=== PATIENT | female | born 1980 | race Caucasian/White ===

== ENCOUNTER 2016-10-17 06:40 | Emergency (ER) | payer BC ==
[2016-10-17] MEDS ORDERED: Ondansetron 4 MG/2 ML SDV IVPUSH ONE ×2 (07:13→10:19)
[2016-10-17] MEDS ORDERED: HYDROmorphone 1 MG/ML Syringe IVPUSH ONE ×3 (07:13→09:29)
[2016-10-17] MEDS ORDERED: Sodium Chloride 0.9% 500 ML IV ONE (07:13)
[2016-10-17] MEDS ORDERED: Sodium Chloride 0.9% 10 ML Syringe FLUSH PRN (07:13)
[2016-10-17] MEDS ORDERED: Metoclopramide 10 MG/2 ML SDV IVPUSH ONE (08:24)
[2016-10-17] MEDS ORDERED: HYDROmorphone 0.5 MG/0.5 ML Syringe IVPUSH ONE (08:24)
[2016-10-17] MEDS ORDERED: Tamsulosin 0.4 MG Cap.ER PO ONE (08:59)
--- NOTE | 2016-10-17 09:33 | EDM.PDOC ---
ED HPI GENERAL MEDICAL PROBLEM - General Chief Complaint: Back Pain or Injury Stated Complaint: LOWER BACK AND ABDOMINAL PAIN Time Seen by Provider: 10/17/16 07:04 Source of Information: Reports: Patient, RN Notes Reviewed - History of Present Illness INITIAL COMMENTS - FREE TEXT/NARRATIVE: 36-year-old female presents with severe left back and flank discomfort. She had onset of mild discomfort off and on a day or 2 ago. That became much more severe last evening, has continued quite severe through the night up until this time. Has sharp shooting pain now radiating clear to the left groin. She's had some nausea and vomiting with this. Is have history of prior kidney stone many years ago. This discomfort is very similar. No voiding symptoms. No fever or chills. No right-sided abdominal pain. Lower Back Pain Score (Numeric/FACES): 7 - Related Data Allergies Allergy/AdvReac Type Severity Reaction Status Date / Time medical tape Allergy Rash Uncoded 10/17/16 06:48 Home Meds: Home Meds [id number]/Ferrous Fumarate/FA [ Multivitamins] 1 each PO QAM 04/29/14 [ History] Ibuprofen [Motrin] 600 mg PO Q4H PRN #30 tablet 04/23/15 [Rx] Lanolin [Lansinoh HPA] 1 applic TOP ASDIRECTED PRN #30 tube 04/23/15 [Rx] Ondansetron [Zofran ODT] 4 mg PO Q4H #4 tab.dis 06/23/15 [Rx] Past Medical History HEENT History: Reports: Other (See Below) Other HEENT History: States has sinus issues with previous surgery in 2007 [employer] DE[employer] History: Reports: Dysfunctional Uterine Bleeding, , Other (See Below) Other OB/BYN History: D&C 2014. Ovarian Cyst removal 2013. Csection 2007. breast augmentation. yeast infection Musculoskeletal History: Reports: Back Pain, Chronic Neurological History: Reports: Migraines - Past Surgical History HEENT Surgical History: Reports: Oral Surgery, Other (See Below) GI Surgical History: Reports: Appendectomy Other GI Surgeries/Procedures: 1998 Female Surgical History: Reports: Section Musculoskeletal Surgical History: Reports: Arthroscopic Knee Social & Family History - Family History Musculoskeletal: Reports: RA Other Musculoskeletal Family History: Mother Oncologic: Reports: Prostate Other Oncologic Family History: Maternal Grandpa - Tobacco Use Smoking Status *Q: Never Smoker Second Hand Smoke Exposure: No - Caffeine Use Caffeine Use: Reports: None - Alcohol Use Days Per Week of Alcohol Use: 0 - Recreational Drug Use Recreational Drug Use: No ED ROS GENERAL - Review of Systems Review Of Systems: See Below Constitutional: Denies: Fever, Chills, Diaphoresis HEENT: Reports: No Symptoms Respiratory: Denies: Shortness of Breath, Pleuritic Chest Pain Cardiovascular: Denies: Chest Pain GI/Abdominal: Reports: Abdominal Pain, Nausea, Vomiting : Reports: No Symptoms Musculoskeletal: Reports: Back Pain. Denies: Leg Pain Skin: Reports: No Symptoms Neurological: Reports: No Symptoms ED EXAM, RENAL/ - Physical Exam Exam: See Below General Appearance: Alert, Severe Distress Eye Exam: Bilateral Eye: PERRL Throat/Mouth: Normal Inspection, Normal Oropharynx Head: No: Facial Swelling Neck: Supple, Full Range of Motion Respiratory/Chest: No Respiratory Distress, Lungs Clear, Normal Breath Sounds Cardiovascular: Regular Rate, Rhythm GI/Abdominal: Soft, Tender (LL quad) Back Exam: CVA Tenderness (L) Extremities: Normal Inspection, Normal Range of Motion Neurological: Alert, Oriented, No Motor/Sensory Deficits Skin Exam: Warm, Dry, Normal Color Course - Vital Signs Last Recorded V/S: Last Vital Signs Temp 98.4 F 10/17/16 06:45 Pulse 86 10/17/16 10:50 Resp 18 10/17/16 10:50 BP 136/88 10/17/16 10:50 Pulse Ox 100 10/17/16 10:50 - Orders/Labs/Meds Orders: Active Orders 24 hr Category Date Time Status Peripheral IV Care [RC] . DIRECTED Care 10/17/16 07:14 Active Peripheral IV Insertion Adult [OM.PC] Stat Oth 10/17/16 07:13 Ordered Labs: Laboratory Tests 10/17/16 Range/Units 10:40 Urine Color Yellow (Yellow) Urine Appearance Cloudy H (Clear) Urine pH 7.0 (5.0-8.0) Ur Specific [place] 1.020 (1.005-1.030) Urine Protein 1+ H (Negative) Urine Glucose (UA) Negative (Negative) Urine Ketones Negative (Negative) Urine Occult Blood 3+ H (Negative) Urine Nitrite Negative (Negative) Urine Bilirubin Negative (Negative) Urine Urobilinogen 0.2 (0.2-1.0) Ur Leukocyte Esterase Negative (Negative) Urine RBC 75-100 H (0-5) /hpf Urine WBC 5-10 H (0-5) /hpf Ur Epithelial Cells 20-30 H (0-5) /hpf Urine Bacteria Few (FEW) /hpf Urine Mucus Not seen (FEW) /hpf Meds: Medications Discontinued Medications Generic Name Dose Route Start Last Admin Trade Name Freq PRN Reason Stop Dose Admin Hydromorphone HCl 1 mg 10/17/16 07:13 10/17/16 07:20 Dilaudid IVPUSH 10/17/16 07:14 1 mg ONETIME ONE Administration Hydromorphone HCl 0.5 mg 10/17/16 08:24 10/17/16 08:33 Dilaudid IVPUSH 10/17/16 08:25 0.5 mg ONETIME ONE Administration Hydromorphone HCl 0.5 mg 10/17/16 08:58 10/17/16 09:04 Dilaudid IVPUSH 10/17/16 08:59 0.5 mg ONETIME ONE Administration Hydromorphone HCl 0.5 mg 10/17/16 09:29 10/17/16 09:37 Dilaudid IVPUSH 10/17/16 09:30 0.5 mg ONETIME ONE Administration Sodium Chloride 500 mls @ 999 mls/hr 10/17/16 07:13 10/17/16 07:24 Normal Saline IV 10/17/16 07:43 999 mls/hr .BOLUS ONE Administration Metoclopramide HCl 5 mg 10/17/16 08:24 10/17/16 08:36 Reglan IVPUSH 10/17/16 08:25 5 mg ONETIME ONE Administration Ondansetron HCl 4 mg 10/17/16 07:13 10/17/16 07:22 Zofran IVPUSH 10/17/16 07:14 4 mg ONETIME ONE Administration Ondansetron HCl 4 mg 10/17/16 10:19 10/17/16 10:23 Zofran IVPUSH 10/17/16 10:20 4 mg ONETIME ONE Administration Sodium Chloride 10 ml 10/17/16 07:13 10/17/16 07:20 Saline Flush FLUSH 10 ml ASDIRECTED PRN Administration Keep Vein Open Tamsulosin HCl 0.4 mg 10/17/16 08:59 10/17/16 09:06 Flomax PO 10/17/16 09:00 0.4 mg ONETIME ONE Administration - Re-Assessments/Exams Free Text/Narrative Re-Assessment/Exam: 10/17/16 09:29 CT of abdomen and pelvis without contrast does show a 7 mm obstructing stone in the area of the left UVJ. See radiology report for details. She was given 1 mg Dilaudid initially along with Zofran 4 mg IV. That helped but with continued severe discomfort she is required further 0.5 mg dosages, pain is still at a 7. Called [facility] and Dr. Connolly, Urologist will be able to see her this afternoon at the clinic. We have asked radiology to push her CT. Her is going to go run and fill scripts and we will get her going in about an hour so she can be there around 1:00 [place] time. She's been advised to remain nothing by mouth. We have given close to 1 L of IV fluid so hydration should not be a problem for now. Departure - Departure Time of Disposition: 10:30 Disposition: DC/Tfer to Other 70 Condition: Fair Clinical Impression: Kidney stone on left side - Discharge Information Instructions: Kidney Stones, [id number], Renal Colic Referrals: Omkar Harley MD [Primary Care Provider] - Forms: ED Department Discharge Additional Instructions: Go to [facility] to see Dr. Connolly, Urologist this afternoon at 1 :00 central time or as soon as possible thereafter. Zofran 4 mg ODT if needed for further nausea or vomiting. Do not eat or drink until after your appointment. - My Orders Last 24 Hours: My Active Orders 10/17/16 07:13 Peripheral IV Insertion Adult [OM.PC] Stat 10/17/16 07:14 Peripheral IV Care [RC] . DIRECTED - Assessment/Plan Last 24 Hours: My Active Orders 10/17/16 07:13 Peripheral IV Insertion Adult [OM.PC] Stat 10/17/16 07:14 Peripheral IV Care [RC] . DIRECTED
--- NOTE | 2016-10-17 09:56 | CT ---
CT abdomen and pelvis Technique: Multiple axial sections were obtained from above the dome of the diaphragm inferiorly through the pubic symphysis. Intravenous and oral contrast was not utilized. Study has been performed as a ureteral stone protocol. Comparison: Previous CT abdomen and pelvis exam of 05/27/13. Findings: Nonobstructing calculi are identified within both kidneys. These have slightly increased in number from previous CT exam. Left-sided hydronephrosis is seen. This is caused by an obstructing stone located slightly past the UPJ measuring approximately 7 mm. Other portions of left ureter show no dilatation. No other ureteral calculi are seen on the right or left sides. Visualized lung bases shows nothing acute. Noncontrast liver and spleen appears within normal limits. Adrenal glands show no nodule. No discrete abnormality is identified within the pancreas. Abdominal aorta shows no aneurysmal dilatation. No retroperitoneal adenopathy or mesenteric abnormalities are seen. No pelvic mass or adenopathy is seen. Cystic lesion is identified within the left ovary measuring 3.5 cm. No additional pelvic abnormality is seen. Appendix is not definitely appreciated. No bowel dilatation is seen. Bone window settings were reviewed which appears within normal limits for the patient's age. Impression: 1. Nonobstructing calculi within both kidneys. Number of calculi have slightly increased from prior CT exam. 2. 7 mm obstructing stone located slightly past the UPJ on the left side causing proximal hydronephrosis. 3. 3.5 cm cyst noted within the left ovary which is likely incidental although follow-up pelvic ultrasound could be obtained in 6 months to make sure finding resolves. Diagnostic code #3
[2016-10-17 11:01] VITALS: BP 136/88
== END 2016-10-17 10:50 | disposition other institution (70) ==
LOC: JD.ED 06:40
DX: N13.2 Hydronephrosis with renal and ureteral calculous obstruction (principal); G43.909 Migraine, unspecified, not intractable, without status migrainosus; Z90.49 Acquired absence of other specified parts of digestive tract; Z98.890 Other specified postprocedural states
CPT/HCPCS: 74176; 81001; 96361; 96374; 96375; 96376; 99284; A9270; J1170; J2405; J2765; J7040; J7050

== ENCOUNTER 2017-10-03 18:43 | Emergency (ER) | payer BC ==
[2017-10-03 18:52] VITALS: BP 124/88
[2017-10-03] MEDS ORDERED: Sodium Chloride 0.9% 1,000 ML IV ONE (19:20)
[2017-10-03] MEDS ORDERED: Ondansetron 4 MG/2 ML SDV IVPUSH ONE (19:20)
[2017-10-03] MEDS ORDERED: HYDROmorphone 0.5 MG/0.5 ML SYRINGE IVPUSH ONE (19:20)
[2017-10-03] MEDS ORDERED: Sodium Chloride 0.9% 10 ML Syringe FLUSH PRN (19:20)
--- NOTE | 2017-10-03 19:25 | EDM.PDOC ---
ED HPI GENERAL MEDICAL PROBLEM - General Chief Complaint: Flank Pain Stated Complaint: RIGHT LOWER FLANK PAIN Time Seen by Provider: 10/03/17 19:24 Source of Information: Reports: Patient History Limitations: Reports: No Limitations - History of Present Illness INITIAL COMMENTS - FREE TEXT/NARRATIVE: 37-year-old female presents for evaluation and treatment of right-sided back and flank pain. Patient reports that she has been feeling unwell for the last 3 days. States that the sudden pain started tonight. Reports that the pain is currently a 5 out of 10 and is sharp. Worse with movement. Reports associated symptoms of nausea but no vomiting. No dysuria, hematuria, fevers or chills. Patient has a history of kidney stones, reports that this feels similar. Patient was seen in [place], approximately one year ago for a 7 mm obstructing stone. She reports she did have a stent placed. 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 Ovarian Cyst removal 2013. Csection 2007. breast augmentation. yeast infection Musculoskeletal History: Reports: Back Pain, Chronic Neurological History: Reports: Migraines - Past Surgical History HEENT Surgical History: Reports: Oral Surgery, Other (See Below) GI Surgical History: Reports: Appendectomy Other GI Surgeries/Procedures: 1998 Female Surgical History: Reports: Section, Kidney stone extraction Musculoskeletal Surgical History: Reports: Arthroscopic Knee Social & Family History - Family History Musculoskeletal: Reports: RA Other Musculoskeletal Family History: Mother Oncologic: Reports: Prostate Other Oncologic Family History: Maternal Grandpa - Tobacco Use Smoking Status *Q: Never Smoker - Caffeine Use Caffeine Use: Reports: None - Recreational Drug Use Recreational Drug Use: No ED ROS GENERAL - Review of Systems Review Of Systems: See Below Constitutional: Reports: Malaise. Denies: Fever GI/Abdominal: Reports: Nausea. Denies: Abdominal Pain, Vomiting : Reports: Flank Pain (right). Denies: Dysuria, Hematuria Musculoskeletal: Reports: Back Pain (bilateral mid back) ED EXAM, RENAL/ - Physical Exam Exam: See Below Exam Limited By: No Limitations General Appearance: Alert, WD/WN, Moderate Distress Eye Exam: Bilateral Eye: Normal Inspection Ears: Normal External Exam Nose: Normal Inspection Throat/Mouth: Normal Inspection, Normal Lips, Normal Voice, No Airway Compromise Respiratory/Chest: No Respiratory Distress, Lungs Clear, Normal Breath Sounds Cardiovascular: Normal Peripheral Pulses, Regular Rate, Rhythm, No Murmur GI/Abdominal: Normal Bowel Sounds, Soft, Non-Tender Neurological: Alert, Oriented, Normal Cognition Psychiatric: Normal Affect, Normal Mood Skin Exam: Warm, Dry, Normal Color Course - Vital Signs Last Recorded V/S: Last Vital Signs Temp 99.1 F 10/03/17 18:50 Pulse 77 10/03/17 18:50 Resp 18 10/03/17 18:50 BP 124/88 10/03/17 18:50 Pulse Ox 99 10/03/17 18:50 - Orders/Labs/Meds Orders: Active Orders 24 hr Category Date Time Status Peripheral IV Care [RC] . DIRECTED Care 10/03/17 19:20 Active Peripheral IV Insertion Adult [OM.PC] Routine Oth 10/03/17 19:18 Ordered Labs: Laboratory Tests 10/03/17 10/03/17 10/03/17 Range/Units 19:00 19:00 19:32 WBC 8.81 (3.98-10.04) K/mm3 RBC 4.14 (3.98-5.22) M/mm3 Hgb 12.7 (11.2-15.7) gm/L Hct 37.5 (34.1-44.9) % MCV 90.6 (79.4-94.8) fl MCH 30.7 (25.6-32.2) pg MCHC 33.9 (32.2-35.5) g/dl RDW Std Deviation 41.4 (36.4-46.3) fL Plt Count 241 (182-369) K/mm3 MPV 10.5 (9.4-12.3) fl Neut % (Auto) 49.8 (34.0-71.1) % Lymph % (Auto) 34.2 (19.3-51.7) % [place] % (Auto) 6.6 (4.7-12.5) % Eos % (Auto) 9.3 H (0.7-5.8) Baso % (Auto) 0.0 L (0.1-1.2) % Neut # (Auto) 4.39 (1.56-6.13) K/mm3 Lymph # (Auto) 3.01 (1.18-3.74) K/mm3 Johnston # (Auto) 0.58 H (0.24-0.36) K/mm3 Eos # (Auto) 0.82 H (0.04-0.36) K/mm3 Baso # (Auto) 0.00 L (0.01-0.08) K/mm3 Sodium (136-145) mEq/L Potassium (3.5-5.1) mEq/L Chloride (98-107) mEq/L Carbon Dioxide (21-32) mEq/L Anion Gap (5-15) BUN (7-18) mg/dL Creatinine (0.55-1.02) mg/dL Est Cr Clr Drug Dosing mL/min Estimated GFR (MDRD) (>60) mL/min BUN/Creatinine Ratio (14-18) Glucose (74-106) mg/dL Calcium (8.5-10.1) mg/dL Total Bilirubin (0.2-1.0) mg/dL AST (15-37) U/L ALT (14-59) U/L Alkaline Phosphatase (46-116) U/L C-Reactive Protein (<1.0) mg/dL Total Protein (6.4-8.2) g/dl Albumin (3.4-5.0) g/dl Globulin gm/dL Albumin/Globulin Ratio (1-2) Urine Color Yellow (Yellow) Urine Appearance Slt cloudy H (Clear) Urine pH 6.5 (5.0-8.0) Ur Specific [place] 1.025 (1.005-1.030) Urine Protein Negative (Negative) Urine Glucose (UA) Negative (Negative) Urine Ketones Negative (Negative) Urine Occult Blood Negative (Negative) Urine Nitrite Negative (Negative) Urine Bilirubin Negative (Negative) Urine Urobilinogen 1.0 (0.2-1.0) Ur Leukocyte Esterase Trace H (Negative) Urine RBC 0-5 (0-5) /hpf Urine WBC 0-5 (0-5) /hpf Ur Epithelial Cells 0-5 (0-5) /hpf Urine Bacteria Not seen (FEW) /hpf Urine Mucus Not seen (FEW) /hpf Urine HCG, Qual Negative (NEGATIVE) 10/03/17 10/03/17 Range/Units 19:32 19:32 WBC (3.98-10.04) K/mm3 RBC (3.98-5.22) M/mm3 Hgb (11.2-15.7) gm/L Hct (34.1-44.9) % MCV (79.4-94.8) fl MCH (25.6-32.2) pg MCHC (32.2-35.5) g/dl RDW Std Deviation (36.4-46.3) fL Plt Count (182-369) K/mm3 MPV (9.4-12.3) fl Neut % (Auto) (34.0-71.1) % Lymph % (Auto) (19.3-51.7) % [place] % (Auto) (4.7-12.5) % Eos % (Auto) (0.7-5.8) Baso % (Auto) (0.1-1.2) % Neut # (Auto) (1.56-6.13) K/mm3 Lymph # (Auto) (1.18-3.74) K/mm3 Johnston # (Auto) (0.24-0.36) K/mm3 Eos # (Auto) (0.04-0.36) K/mm3 Baso # (Auto) (0.01-0.08) K/mm3 Sodium 138 (136-145) mEq/L Potassium 3.9 (3.5-5.1) mEq/L Chloride 105 (98-107) mEq/L Carbon Dioxide 22 (21-32) mEq/L Anion Gap 14.9 (5-15) BUN 18 (7-18) mg/dL Creatinine 0.9 (0.55-1.02) mg/dL Est Cr Clr Drug Dosing 84.66 mL/min Estimated GFR (MDRD) > 60 (>60) mL/min BUN/Creatinine Ratio 20.0 H (14-18) Glucose 116 H (74-106) mg/dL Calcium 8.7 (8.5-10.1) mg/dL Total Bilirubin 0.3 (0.2-1.0) mg/dL AST 15 (15-37) U/L ALT 17 (14-59) U/L Alkaline Phosphatase 58 (46-116) U/L C-Reactive Protein < 0.2 (<1.0) mg/dL Total Protein 6.9 (6.4-8.2) g/dl Albumin 3.9 (3.4-5.0) g/dl Globulin 3.0 gm/dL Albumin/Globulin Ratio 1.3 (1-2) Urine Color (Yellow) Urine Appearance (Clear) Urine pH (5.0-8.0) Ur Specific [place] (1.005-1.030) Urine Protein (Negative) Urine Glucose (UA) (Negative) Urine Ketones (Negative) Urine Occult Blood (Negative) Urine Nitrite (Negative) Urine Bilirubin (Negative) Urine Urobilinogen (0.2-1.0) Ur Leukocyte Esterase (Negative) Urine RBC (0-5) /hpf Urine WBC (0-5) /hpf Ur Epithelial Cells (0-5) /hpf Urine Bacteria (FEW) /hpf Urine Mucus (FEW) /hpf Urine HCG, Qual (NEGATIVE) Meds: Medications Discontinued Medications Generic Name Dose Route Start Last Admin Trade Name Dariusq PRN Reason Stop Dose Admin Hydromorphone HCl 0.5 mg 10/03/17 19:20 10/03/17 19:49 Dilaudid IVPUSH 10/03/17 19:21 0.5 mg ONETIME ONE Administration Sodium Chloride 1,000 mls @ 999 mls/hr 10/03/17 19:20 10/03/17 19:50 Normal Saline IV 10/03/17 20:20 999 mls/hr ONETIME ONE Administration Ondansetron HCl 4 mg 10/03/17 19:20 10/03/17 19:49 Zofran IVPUSH 10/03/17 19:21 4 mg ONETIME ONE Administration Sodium Chloride 10 ml 10/03/17 19:20 10/03/17 19:30 Saline Flush FLUSH 10 ml ASDIRECTED PRN Administration Keep Vein Open - Radiology Interpretation Free Text/Narrative:: CT of the abdomen and pelvis without contrast impression per vrad: Small amount sections stones in the left kidney. No signs of stones in either ureter or in the urinary bladder. Those no sign of hydronephrosis. Mesenteric lymph nodes are seen in the right lower quadrant and there may be mesenteric adenitis. I do not identify the appendix but there is no sign of acute inflammatory change in the right lower quadrant. - Re-Assessments/Exams Free Text/Narrative Re-Assessment/Exam: 10/03/17 22:04 Checked on the patient. She has done well with the IV Dilaudid. Declined additional pain medication. I reviewed the labs and imaging with the patient. This most likely appears to be mesenteric adenitis. Is possible that she also passed a very small stone that did not cause any ureteral dilation and she's having residual ureteral spasm from this. Will give her some pain meds and have her follow a clear fluids and bland diet. Her symptoms should resolve by early next week and if not she should follow up with her primary care provider. Discharge instructions as documented. Departure - Departure Time of Disposition: 22:08 Disposition: Home, Self-Care 01 Condition: Fair Clinical Impression: Mesenteric adenitis - Discharge Information Prescriptions: Acetaminophen/oxyCODONE [Percocet 325-5 MG] 1 tab PO Q4HR PRN #20 tab PRN Reason: Pain Instructions: Mesenteric Adenitis, Pediatric Referrals: Omkar Harley MD [Primary Care Provider] - Forms: ED Department Discharge Additional Instructions: Recommend starting a probiotic. Theses are available [id number]. Recommend clear fluids and a bland diet. You were given medication the ER that can affect your ability to drive and operate machinery. Do not operate machinery within 12 hours of taking prescription narcotic pain medication. [id number] Tylenol or Motrin as needed for pain. For pain not relieved by Tylenol Motrin you may take Percocet 1-2 tabs every 4-[address] operate machinery within 12 hours of taking Percocet. Percocet is habit-forming , take as few these as needed to control your pain. Do not take more than 4 g of Tylenol from all sources in 1 day. Do not take more than 300 mg of ibuprofen from all sources in 1 day. Follow up with your primary care provider within one week for recheck of your symptoms. Please return to ER if your symptoms change or worsen. - My Orders Last 24 Hours: My Active Orders 10/03/17 19:18 Peripheral IV Insertion Adult [OM.PC] Routine 10/03/17 19:20 Peripheral IV Care [RC] . DIRECTED - Assessment/Plan Last 24 Hours: My Active Orders 10/03/17 19:18 Peripheral IV Insertion Adult [OM.PC] Routine 10/03/17 19:20 Peripheral IV Care [RC] . DIRECTED
--- NOTE | 2017-10-04 10:22 | CT ---
CT abdomen and pelvis Technique: Multiple axial sections were obtained from above the dome of the diaphragm inferiorly through the pubic symphysis. Intravenous contrast and oral contrast not given. Study has been performed as a ureteral stone protocol. Comparison: Prior CT abdomen and pelvis exam of 10/17/16. Findings: Numerous calcifications are seen within both kidneys compatible with small nonobstructing calculi. These findings have slightly changed in configuration from previous CT exam. No ureteral dilatation is seen. No ureteral stone is identified. Visualized lung bases show nothing acute. Noncontrast appearance of the liver and of the spleen appear within normal limits. Adrenal glands show no nodule. Pancreas shows no discrete abnormality. Aorta shows no aneurysmal dilatation. Gallbladder contains no calcified gallstones. Aorta shows no aneurysmal dilatation. No retroperitoneal adenopathy is seen. No pelvic mass or adenopathy is seen. Appendix is not definitely visualized but no right lower quadrant inflammatory change is seen. Slightly numerous lymph nodes are seen within the right lower abdomen. Incidental IUD is present within the uterus. Bone window settings were reviewed which appear within normal limits for the patient's age. Impression: 1. Multiple small nonobstructing calculi within the kidneys changing in configuration from prior study. 2. No ureteral dilatation or ureteral stone is seen. 3. Slightly numerous lymph nodes within the right lower abdomen. This is felt to be incidental but difficult to exclude mild mesenteric adenitis. 4. Other normal findings as noted above. Diagnostic code #3 I agree with preliminary report from [facility], finalized at 10/03/17, 10:00 PM Central Time
== END 2017-10-03 22:24 | disposition home or self-care (01) ==
LOC: JD.ED 18:43
DX: I88.0 Nonspecific mesenteric lymphadenitis (principal); Z79.899 Other long term (current) drug therapy; Z91.09 Other allergy status, other than to drugs and biological substances
CPT/HCPCS: 36415; 74176; 80053; 81001; 81025; 85025; 86140; 96361; 96374; 96375; 99284; J1170; J2405; J7040; J7050

== ENCOUNTER 2018-08-02 19:35 | Emergency (ER) | payer BC ==
[2018-08-02] MEDS ORDERED: HYDROmorphone 1 MG/ML Syringe IVPUSH ONE ×2 (19:51→20:14)
[2018-08-02] MEDS ORDERED: Ketorolac 30 MG/ML SDV IVPUSH ONE (19:51)
[2018-08-02] MEDS ORDERED: Ondansetron 4 MG/2 ML SDV IVPUSH ONE ×2 (19:52→21:16)
[2018-08-02 20:01] VITALS: BP 131/112
--- NOTE | 2018-08-02 20:05 | EDM.PDOC ---
ED HPI GENERAL MEDICAL PROBLEM - General Chief Complaint: Flank Pain Stated Complaint: KIDNEY STONE PAIN Time Seen by Provider: 08/02/18 19:40 Source of Information: Reports: Patient History Limitations: Reports: No Limitations - History of Present Illness INITIAL COMMENTS - FREE TEXT/NARRATIVE: This is a 38-year-old female. Over the last several days she's been having intermittent pain in her right flank. She has a history of several kidney stones in the past. The pain was tolerable over the last few days but about an hour and a half ago the pain got much more severe with nausea and she comes to the ER for evaluation. She is in moderate distress complaining of right flank and right lower quadrant abdominal pain. It feels like his moving down into the lower abdomen now. She does have nausea though she's had no vomiting. She says it feels like a kidney stone that she's had in the past. She wants a CAT scan to determine the size of the kidney stone since she's had multiple stones and had to be removed. She denies any fever or chills denies any blood in her urine. Right Flank Pain Score (Numeric/FACES): 9 - Related Data Allergies Allergy/AdvReac Type Severity Reaction Status Date / Time medical tape Allergy Rash Uncoded 08/02/18 19:39 Home Meds: Home Meds Albuterol [Ventolin HFA] 1 inh INH DAILY PRN 10/03/17 [History] Promethazine [Phenergan] 25 mg PO Q4H PRN 11/22/17 [History] SUMAtriptan [Imitrex] 50 mg PO ASDIRECTED PRN 11/22/17 [History] DULoxetine [Cymbalta] 30 mg PO DAILY 08/02/18 [History] LORazepam 0.5 - 1 mg PO BID PRN 08/02/18 [History] Dicyclomine [Bentyl] 40 mg PO Q8H PRN #20 tablet 08/03/18 [Rx] Past Medical History HEENT History: Reports: Other (See Below) Other HEENT History: States has sinus issues with previous surgery in 2007 Respiratory History: Reports: Asthma Other Respiratory History: exercise-induced asthma. Genitourinary History: Reports: Renal Calculus [employer] History: Reports: Dysfunctional Uterine Bleeding, Other [employer] History: D&C 2014. Ovarian Cyst removal 2013. Csection 2008. breast augmentation. yeast infection Musculoskeletal History: Reports: Back Pain, Chronic Neurological History: Reports: Migraines Hematologic History: Reports: Anemia, Iron Deficiency Other Hematologic History: during . - Infectious Disease History Infectious Disease History: Reports: Chicken Pox - Past Surgical History HEENT Surgical History: Reports: Naso-Sinus Surgery (2007), Oral Surgery ( wisdom teeth extraction) GI Surgical History: Reports: Appendectomy Other GI Surgeries/Procedures: 1998 Female Surgical History: Reports: Breast Implant, Section (2007), D& C (2014), Ureteral Stent, Other (See Below) (Ovarian cystectomy 2013) Musculoskeletal Surgical History: Reports: Arthroscopic Knee (right) Social & Family History - Family History Musculoskeletal: Reports: RA Other Musculoskeletal Family History: Mother Oncologic: Reports: Prostate Other Oncologic Family History: Maternal Grandpa - Caffeine Use Caffeine Use: Reports: None Other Caffeine Use: rarely - Living Situation & Occupation Living situation: Reports: , with Spouse, with Family (4 sons) Occupation: Employed ([employer]) ED ROS GENERAL - Review of Systems Review Of Systems: See Below Constitutional: Denies: Fever, Chills HEENT: Reports: No Symptoms Respiratory: Reports: No Symptoms Cardiovascular: Reports: No Symptoms Endocrine: Reports: No Symptoms GI/Abdominal: Reports: Abdominal Pain, Nausea. Denies: Constipation, Diarrhea, Vomiting : Reports: Flank Pain. Denies: Hematuria Musculoskeletal: Reports: No Symptoms Skin: Reports: No Symptoms Neurological: Reports: No Symptoms Psychiatric: Reports: No Symptoms Hematologic/Lymphatic: Reports: No Symptoms ED EXAM, GI/ABD - Physical Exam Exam: See Below Exam Limited By: No Limitations General Appearance: Alert, WD/WN, Moderate Distress Eyes: Bilateral: Normal Appearance Ears: Normal External Exam Nose: Normal Inspection Throat/Mouth: Normal Inspection, Normal Lips, Normal Voice, No Airway Compromise Head: Normocephalic Neck: Supple Respiratory/Chest: No Respiratory Distress, Lungs Clear, Normal Breath Sounds Cardiovascular: Regular Rate, Rhythm, No Murmur GI/Abdominal Exam: Soft, Other (He has tenderness in the right flank and especially the right lower quadrant area on palpation but there is no rebound, there is no peritoneal irritation noted. Bowel sounds are quiet presently) Back Exam: Full Range of Motion Extremities: Normal Inspection, Normal Range of Motion Neurological: Alert, Oriented Psychiatric: Anxious Skin Exam: Warm, Dry Course - Vital Signs Last Recorded V/S: Last Vital Signs Temp 99.2 F 08/02/18 19:39 Pulse 95 08/02/18 19:39 Resp 20 08/02/18 19:39 BP 131/112 H 08/02/18 19:39 Pulse Ox 100 08/02/18 19:39 - Orders/Labs/Meds Orders: Active Orders 24 hr Category Date Time Status Abdomen Pelvis w Cont [CT] Stat Exams 08/02/18 22:00 Taken Sodium Chloride 0.9% [Normal Saline] 1,000 ml Med 08/02/18 21:15 Active IV ASDIRECTED Medication Orders Sodium Chloride (Normal Saline) 1,000 mls @ 1,000 mls/hr IV ASDIRECTED TRACIE Last Admin: 08/02/18 21:21 Dose: 1,000 mls/hr Labs: Laboratory Tests 08/02/18 08/02/18 08/02/18 Range/Units 19:50 19:50 21:02 WBC 15.43 H (3.98-10.04) K/mm3 RBC 4.76 (3.98-5.22) M/mm3 Hgb 14.5 D (11.2-15.7) gm/L Hct 42.2 (34.1-44.9) % MCV 88.7 (79.4-94.8) fl MCH 30.5 (25.6-32.2) pg MCHC 34.4 (32.2-35.5) g/dl RDW Std Deviation 41.0 (36.4-46.3) fL Plt Count 304 (182-369) K/mm3 MPV 10.0 (9.4-12.3) fl Neut % (Auto) 66.8 (34.0-71.1) % Lymph % (Auto) 24.5 (19.3-51.7) % [place] % (Auto) 5.2 (4.7-12.5) % Eos % (Auto) 3.2 (0.7-5.8) Baso % (Auto) 0.1 (0.1-1.2) % Neut # (Auto) 10.32 H (1.56-6.13) K/mm3 Lymph # (Auto) 3.78 H (1.18-3.74) K/mm3 [place] # (Auto) 0.80 H (0.24-0.36) K/mm3 Eos # (Auto) 0.49 H (0.04-0.36) K/mm3 Baso # (Auto) 0.01 (0.01-0.08) K/mm3 Sodium 139 (136-145) mEq/L Potassium 3.7 (3.5-5.1) mEq/L Chloride 104 (98-107) mEq/L Carbon Dioxide 22 (21-32) mEq/L Anion Gap 16.7 H (5-15) BUN 12 (7-18) mg/dL Creatinine 0.9 (0.55-1.02) mg/dL Est Cr Clr Drug Dosing 83.82 mL/min Estimated GFR (MDRD) > 60 (>60) mL/min BUN/Creatinine Ratio 13.3 L (14-18) Glucose 96 (74-106) mg/dL Calcium 9.7 (8.5-10.1) mg/dL Total Bilirubin 0.3 (0.2-1.0) mg/dL AST 16 (15-37) U/L ALT 21 (14-59) U/L Alkaline Phosphatase 84 (46-116) U/L Total Protein 8.1 (6.4-8.2) g/dl Albumin 4.4 (3.4-5.0) g/dl Globulin 3.7 gm/dL Albumin/Globulin Ratio 1.2 (1-2) Urine Color Yellow (Yellow) Urine Appearance Clear (Clear) Urine pH 7.0 (5.0-8.0) Ur Specific [place] 1.020 (1.005-1.030) Urine Protein Negative (Negative) Urine Glucose (UA) Negative (Negative) Urine Ketones Negative (Negative) Urine Occult Blood Negative (Negative) Urine Nitrite Negative (Negative) Urine Bilirubin Negative (Negative) Urine Urobilinogen 0.2 (0.2-1.0) Ur Leukocyte Esterase Negative (Negative) Urine RBC 0-5 (0-5) /hpf Urine WBC 0-5 (0-5) /hpf Ur Squamous Epith Cells 0-5 (0-5) /hpf Urine Bacteria Occasional (FEW) /hpf Urine Mucus Moderate H (FEW) /hpf Meds: Medications Generic Name Dose Route Start Last Admin Trade Name Freq PRN Reason Stop Dose Admin Sodium Chloride 1,000 mls @ 1,000 mls/hr 08/02/18 21:15 08/02/18 21:21 Normal Saline IV 1,000 mls/hr ASDIRECTED TRACIE Administration Discontinued Medications Generic Name Dose Route Start Last Admin Trade Name Shilpi PRN Reason Stop Dose Admin Diatrizoate Meglum/Diatrizoate Sod 60 ml 08/02/18 23:07 08/02/18 23:15 Gastrografin 37% PO 08/02/18 23:08 60 ml ONETIME ONE Administration Hydromorphone HCl 1 mg 08/02/18 19:51 08/02/18 20:01 Dilaudid IVPUSH 08/02/18 19:52 1 mg ONETIME ONE Administration Hydromorphone HCl 1 mg 08/02/18 20:14 08/02/18 20:20 Dilaudid IVPUSH 08/02/18 20:15 1 mg ONETIME ONE Administration Iopamidol 100 ml 08/02/18 23:07 08/02/18 23:14 Isovue-370 (76%) IV 08/02/18 23:08 100 ml ONETIME ONE Administration Ketorolac Tromethamine 30 mg 08/02/18 19:51 08/02/18 20:01 Toradol IVPUSH 08/02/18 19:52 30 mg ONETIME ONE Administration Ondansetron HCl 4 mg 08/02/18 19:52 08/02/18 19:54 Zofran IVPUSH 08/02/18 19:53 4 mg ONETIME ONE Administration Ondansetron HCl 4 mg 08/02/18 21:16 08/02/18 21:23 Zofran IVPUSH 08/02/18 21:17 4 mg ONETIME ONE Administration - Radiology Interpretation Free Text/Narrative:: Initial noncontrast CT scan did not show any kidney stones or urethral dilatation. She was noted to have increased stool in the colon however. The second CT scan of the abdomen and pelvis with oral and IV contrast again shows no acute findings. - Re-Assessments/Exams Free Text/Narrative Re-Assessment/Exam: 08/02/18 21:59 The patient is feeling minimally better. We talked about doing a repeat CAT scan with oral and IV contrast to be actually certain we're not missing some sort of subtle inflammation of the colon or some other problem. I indicated to her the radiation exposure but she is more concerned about what is going on and she is having a hard time believing that maybe his colon spasms due to the increased stool is causing her symptoms. She would prefer to have the contrasted CAT scan so that is what we will do. 08/03/18 00:30 Spoke to the patient regarding the second CT scan that was normal. I believe that her severe pain is related to the stool in the colon and the colon cramps. I am going to give her some Bentyl prescription to help with the colon cramps. I am hoping that the oral contrast will help her have some good bowel movements I also suggested some magnesium citrate to drink half a bottle wait 12 hours and drink another half bottle to help her have a good bowel movement. I suggested she follow-up with her family doctor for possible GI referral if these symptoms continue or return to the ER if there is severe. Departure - Departure Time of Disposition: 00:31 Disposition: Home, Self-Care 01 Condition: Good Clinical Impression: Abdominal cramping, Obstipation - Discharge Information *PRESCRIPTION DRUG MONITORING PROGRAM REVIEWED*: Not Applicable *COPY OF PRESCRIPTION DRUG MONITORING REPORT IN PATIENT HERNANDO: Not Applicable Prescriptions: Dicyclomine [Bentyl] 40 mg PO Q8H PRN #20 tablet PRN Reason: Abdominal Pain Instructions: Constipation, Adult Referrals: Omkar Harley MD [Primary Care Provider] - Forms: ED Department Discharge Additional Instructions: Hopefully the oral contrast for the CT scan will help you have some good movements, use the Bentyl as needed for the severe cramping, a few not getting much results in the next 48 hours consider some magnesium citrate and take as directed as an [id number] remedy for constipation, call your doctor on Saturday regarding your visit in the ER for reevaluation and possible referral to a GI specialist, return to the ER if your symptoms worsen markedly - My Orders Last 24 Hours: My Active Orders 08/02/18 21:15 Sodium Chloride 0.9% [Normal Saline] 1,000 ml IV ASDIRECTED 08/02/18 22:00 Abdomen Pelvis w Cont [CT] Stat - Assessment/Plan Last 24 Hours: My Active Orders 08/02/18 21:15 Sodium Chloride 0.9% [Normal Saline] 1,000 ml IV ASDIRECTED 08/02/18 22:00 Abdomen Pelvis w Cont [CT] Stat
--- NOTE | 2018-08-02 20:41 | CT ---
CT abdomen and pelvis Technique: Multiple axial sections were obtained from above the dome of the diaphragm inferiorly through the pubic symphysis. Intravenous and oral contrast not utilized. Study has been performed as ureteral stone protocol. Findings: Multiple small nonobstructing calculi are seen within both kidneys, more numerous on the left side. No ureteral dilatation or ureteral stone is identified. Other findings: Small portion of the visualized lung bases are clear. Noncontrast appearance of the liver and spleen appears within normal limits. Surgical clips are seen from prior cholecystectomy. Adrenal glands show no nodule. Pancreas is within normal limits. Aorta shows no aneurysm. No retroperitoneal adenopathy or mesenteric abnormalities are seen. IUD present within the uterus. No pelvic mass or adenopathy seen. No free fluid or inflammatory change is seen. Appendix is seen and appears to be within normal limits. Increased stool is noted throughout the colon. Bone window settings were reviewed which appear within normal limits for the patient's age. Impression: 1. Multiple small nonobstructing calculi within both kidneys. 2. No ureteral dilatation or ureteral stone is seen. 3. Mild increased stool within the colon. 4. Nothing acute is appreciated on CT study of the abdomen and pelvis. Diagnostic code #2
[2018-08-02] MEDS ORDERED: Sodium Chloride 0.9% 1,000 ML IV SCH (21:15)
[2018-08-02] MEDS ORDERED: Iopamidol 755 Mg/ML 200 ML Bottle IV ONE (23:07)
[2018-08-02] MEDS ORDERED: Diatrizoate Meglumine/Diatrizoate Sodium 37% 120 ML Bottle PO ONE (23:07)
[2018-08-03] MEDS ORDERED: Dicyclomine 10 MG Cap PO ONE (00:46)
--- NOTE | 2018-08-04 06:39 | CT ---
CT abdomen and pelvis Technique: Multiple axial sections were obtained from above the dome of the diaphragm inferiorly through the pubic symphysis. Intravenous and oral contrast was utilized. There is lack of distal small bowel opacification. Delayed images were also obtained through the bladder. Comparison: Previous noncontrast renal stone protocol CT performed earlier on the same day. Findings: Small portion of the visualized lung bases are clear. Liver contains no focal abnormality. Spleen appears within normal limits. Surgical clips are seen from prior cholecystectomy. Common bile duct is slightly prominent believed to be incidental due to previous cholecystectomy. Adrenal glands show no nodule. Kidneys show small nonobstructing calculi which are better seen on prior noncontrast CT exam. No hydronephrosis or mass is seen. Aorta shows no aneurysm. Increased stool is seen throughout the colon. IUD is present within the uterus. Appendix is not definitely visualized. No inflammatory change is noted. No free fluid is seen. Delayed images show contrast within the distal ureters as well as within the bladder. Bone window settings were reviewed which appear within normal limits for the patient's age. Impression: 1. Increased stool within the colon. 2. Other incidental findings. Nothing acute is appreciated. Diagnostic code #2 I agree with preliminary report from [facility], finalized on 08/03/18, 1:18 AM Central Time
== END 2018-08-03 00:42 | disposition home or self-care (01) ==
LOC: JD.ED 19:35
DX: K59.00 Constipation, unspecified (principal); J45.909 Unspecified asthma, uncomplicated; Z79.899 Other long term (current) drug therapy
CPT/HCPCS: 36415; 74176; 74177; 80053; 81001; 85025; 96361; 96374; 96375; 96376; 99284; A9270; J1170; J1885; J2405; J7040; Q9963; Q9967

== ENCOUNTER 2018-08-13 18:35 | Emergency (ER) | payer BC ==
[2018-08-13 18:51] VITALS: BP 143/99
[2018-08-13] MEDS ORDERED: Ketorolac 30 MG/ML SDV IVPUSH ONE (19:01)
[2018-08-13] MEDS ORDERED: Sodium Chloride 0.9% 10 ML Syringe FLUSH PRN (19:01)
[2018-08-13] MEDS ORDERED: diphenhydrAMINE 50 MG/ML SDV IVPUSH ONE (19:01)
[2018-08-13] MEDS ORDERED: Metoclopramide 10 MG/2 ML SDV IVPUSH ONE (19:01)
[2018-08-13] MEDS ORDERED: Sodium Chloride 0.9% 1,000 ML IV ONE (19:02)
--- NOTE | 2018-08-13 19:10 | EDM.PDOC ---
ED HPI GENERAL MEDICAL PROBLEM - General Chief Complaint: Abdominal Pain Stated Complaint: HEADACHE/ABDOMINAL PAIN Time Seen by Provider: 08/13/18 18:46 Source of Information: Reports: Patient, RN Notes Reviewed History Limitations: Reports: No Limitations - History of Present Illness INITIAL COMMENTS - FREE TEXT/NARRATIVE: Patient is a 38-year-old female who presents to the ED for the evaluation of abdominal pain and a headache. The patient states that she was seen in this ED roughly 10 days ago, and was diagnosed with increased stool in her colon and some kidney stones in her kidneys. The patient followed up with her primary care provider on Saturday, he prescribed her a colon flush consisting of Dulcolax and a laxative, she states that she did have fairly good results with this. She states that she has had some increasing abdominal pain that started at work this morning, this is located in her right back and right lower abdomen. Patient states she took a naproxen this morning around 7:30, that this hasn't helped much. The patient states that she has a migraine as well, but has a history of migraines. She said she took her sumatriptan around 4:15, and a Zofran, she states that her nausea got better but her headache has not like not much. She notes that she has some dizziness and nausea, however has not had any diarrhea, vomiting, chest pain, shortness of breath. She notes that she is eating and drinking okay as well and can feel her stomach gurgling. Right Abdomen Pain Score (Numeric/FACES): 10 - Related Data Allergies Allergy/AdvReac Type Severity Reaction Status Date / Time medical tape Allergy Rash Uncoded 08/02/18 19:39 Home Meds: Home Meds Albuterol [Ventolin HFA] 1 inh INH DAILY PRN 10/03/17 [History] Promethazine [Phenergan] 25 mg PO Q4H PRN 11/22/17 [History] SUMAtriptan [Imitrex] 50 mg PO ASDIRECTED PRN 11/22/17 [History] DULoxetine [Cymbalta] 30 mg PO DAILY 08/02/18 [History] LORazepam 0.5 - 1 mg PO BID PRN 08/02/18 [History] Dicyclomine [Bentyl] 40 mg PO Q8H PRN #20 tablet 08/03/18 [Rx] Past Medical History HEENT History: Reports: Other (See Below) Other HEENT History: States has sinus issues with previous surgery in 2007 Respiratory History: Reports: Asthma Other Respiratory History: exercise-induced asthma. Genitourinary History: Reports: Renal Calculus Other Genitourinary History: ovarian cysts [employer] History: Reports: Dysfunctional Uterine Bleeding, Other [employer] History: D&C 2014. Ovarian Cyst removal 2013. Csection 2007. breast augmentation. yeast infection Musculoskeletal History: Reports: Back Pain, Chronic Neurological History: Reports: Migraines Hematologic History: Reports: Anemia, Iron Deficiency Other Hematologic History: during . - Infectious Disease History Infectious Disease History: Reports: Chicken Pox - Past Surgical History HEENT Surgical History: Reports: Naso-Sinus Surgery, Oral Surgery GI Surgical History: Reports: Appendectomy, Cholecystectomy Other GI Surgeries/Procedures: 1998 Female Surgical History: Reports: Breast Implant, Section, D&C, Ureteral Stent, Other (See Below) Musculoskeletal Surgical History: Reports: Arthroscopic Knee Social & Family History - Family History Musculoskeletal: Reports: RA Other Musculoskeletal Family History: Mother Oncologic: Reports: Prostate Other Oncologic Family History: Maternal Grandpa - Tobacco Use Smoking Status *Q: Never Smoker - Caffeine Use Caffeine Use: Reports: None Other Caffeine Use: rarely - Recreational Drug Use Recreational Drug Use: No - Living Situation & Occupation Living situation: Reports: , with Spouse, with Family (4 sons) 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 Denies: Diarrhea, Vomiting : Reports: No Symptoms Musculoskeletal: Reports: No Symptoms Skin: Reports: No Symptoms Neurological: Reports: No Symptoms Psychiatric: Reports: No Symptoms Hematologic/Lymphatic: Reports: No Symptoms ED EXAM, GI/ABD - Physical Exam Exam: See Below Exam Limited By: No Limitations General Appearance: Alert, WD/WN, Mild Distress Eyes: Bilateral: Normal Appearance Ears: Normal External Exam Head: Atraumatic, Normocephalic Neck: Normal Inspection Respiratory/Chest: No Respiratory Distress, Lungs Clear, Normal Breath Sounds, No Accessory Muscle Use, Chest Non-Tender Cardiovascular: Normal Peripheral Pulses, Regular Rate, Rhythm, No Murmur GI/Abdominal Exam: Normal Bowel Sounds, Soft, No Distention, No Mass, Tender ( diffuse abdominal tenderness). No: Guarding, Rigid Extremities: Normal Inspection, Normal Capillary Refill Neurological: Alert, Oriented, Normal Cognition, No Motor/Sensory Deficits Psychiatric: Normal Affect, Normal Mood Skin Exam: Warm, Dry, Intact, Normal Color, No Rash Course - Vital Signs Last Recorded V/S: Last Vital Signs Temp 98.7 F 08/13/18 18:49 Pulse 73 08/13/18 18:49 Resp 20 08/13/18 18:49 BP 143/99 H 08/13/18 18:49 Pulse Ox 98 08/13/18 18:49 - Orders/Labs/Meds Orders: Active Orders 24 hr Category Date Time Status Peripheral IV Care [RC] . DIRECTED Care 08/13/18 19:01 Active UA W/MICROSCOPIC [URIN] Stat Lab 08/13/18 19:55 Results Sodium Chloride 0.9% [Normal Saline] 1,000 ml Med 08/13/18 19:02 Active IV ASDIRECTED Sodium Chloride 0.9% [Saline Flush] Med 08/13/18 19:01 Active 10 ml FLUSH ASDIRECTED PRN Peripheral IV Insertion Adult [OM.PC] Routine Oth 08/13/18 19:01 Ordered Medication Orders Sodium Chloride (Normal Saline) 1,000 mls @ 500 mls/hr IV ASDIRECTED ONE Stop: 08/13/18 21:01 Last Admin: 08/13/18 19:10 Dose: 500 mls/hr Sodium Chloride (Saline Flush) 10 ml FLUSH ASDIRECTED PRN PRN Reason: Keep Vein Open Last Admin: 08/13/18 19:48 Dose: 10 ml Labs: Laboratory Tests 08/13/18 08/13/18 08/13/18 Range/Units 18:45 18:45 19:55 WBC 11.74 H (3.98-10.04) K/mm3 RBC 4.64 (3.98-5.22) M/mm3 Hgb 14.1 (11.2-15.7) gm/L Hct 41.5 (34.1-44.9) % MCV 89.4 (79.4-94.8) fl MCH 30.4 (25.6-32.2) pg MCHC 34.0 (32.2-35.5) g/dl RDW Std Deviation 40.1 (36.4-46.3) fL Plt Count 317 (182-369) K/mm3 MPV 9.9 (9.4-12.3) fl Neutrophils % (Manual) 57 (40-60) % Band Neutrophils % 0 (0-10) % Lymphocytes % (Manual) 31 (20-40) % Atypical Lymphs % 0 % Monocytes % (Manual) 5 (2-10) % Eosinophils % (Manual) 7 H (0.7-5.8) % Basophils % (Manual) 0 L (0.1-1.2) Platelet Estimate Adequate RBC Morph Comment Normal Sodium 140 (136-145) mEq/L Potassium 4.1 (3.5-5.1) mEq/L Chloride 105 (98-107) mEq/L Carbon Dioxide 24 (21-32) mEq/L Anion Gap 15.1 H (5-15) BUN 14 (7-18) mg/dL Creatinine 0.9 (0.55-1.02) mg/dL Est Cr Clr Drug Dosing 83.82 mL/min Estimated GFR (MDRD) > 60 (>60) mL/min BUN/Creatinine Ratio 15.6 (14-18) Glucose 91 (74-106) mg/dL Calcium 10.0 (8.5-10.1) mg/dL Total Bilirubin 0.3 (0.2-1.0) mg/dL AST 15 (15-37) U/L ALT 32 (14-59) U/L Alkaline Phosphatase 81 (46-116) U/L Total Protein 7.8 (6.4-8.2) g/dl Albumin 4.5 (3.4-5.0) g/dl Globulin 3.3 gm/dL Albumin/Globulin Ratio 1.4 (1-2) Urine Color Light yellow (Yellow) Urine Appearance Clear (Clear) Urine pH 6.5 (5.0-8.0) Ur Specific Panther 1.015 (1.005-1.030) Urine Protein Negative (Negative) Urine Glucose (UA) Negative (Negative) Urine Ketones Negative (Negative) Urine Occult Blood Negative (Negative) Urine Nitrite Negative (Negative) Urine Bilirubin Negative (Negative) Urine Urobilinogen 0.2 (0.2-1.0) Ur Leukocyte Esterase Negative (Negative) Meds: Medications Generic Name Dose Route Start Last Admin Trade Name Freq PRN Reason Stop Dose Admin Sodium Chloride 1,000 mls @ 500 mls/hr 08/13/18 19:02 08/13/18 19:10 Normal Saline IV 08/13/18 21:01 500 mls/hr ASDIRECTED ONE Administration Sodium Chloride 10 ml 08/13/18 19:01 08/13/18 19:48 Saline Flush FLUSH 10 ml ASDIRECTED PRN Administration Keep Vein Open Discontinued Medications Generic Name Dose Route Start Last Admin Trade Name Freq PRN Reason Stop Dose Admin Diphenhydramine HCl 25 mg 08/13/18 19:01 08/13/18 19:10 Benadryl IVPUSH 08/13/18 19:02 25 mg ONETIME ONE Administration Ketorolac Tromethamine 30 mg 08/13/18 19:01 08/13/18 19:11 Toradol IVPUSH 08/13/18 19:02 30 mg ONETIME ONE Administration Metoclopramide HCl 10 mg 08/13/18 19:01 08/13/18 19:10 Reglan IVPUSH 08/13/18 19:02 10 mg ONETIME ONE Administration - Re-Assessments/Exams Free Text/Narrative Re-Assessment/Exam: 08/13/18 19:13 Patient presents to the ED for the evaluation of abdominal pain and a headache. I have ordered IV fluids, 30 mg Toradol, 10 mg Reglan, 25 mg Benadryl for initial management of pain and her headache, I have ordered a CBC, CMP, UA for further evaluation of her abdominal symptoms. The patient states she has had multiple abdominal surgeries such as C-sections, a cholecystectomy, and appendectomy, so she likely has multiple adhesions in her abdomen. 08/13/18 20:16 Patient was re-assessed at bedside, and states that she feels better. I am wondering if her abdominal pain isn't due to an abdominal migraine of sorts as well. Her lab work was essentially within normal limits, her white count was mildly elevated however this is likely to be a stress reaction at this time. I will discharge the patient home with general recommendations. Departure - Departure Time of Disposition: 20:18 Disposition: Home, Self-Care 01 Condition: Fair Clinical Impression: Abdominal pain Qualifiers: Abdominal location: generalized Qualified Code(s): R10.84 - Generalized abdominal pain Headache Qualifiers: Headache type: unspecified Headache chronicity pattern: acute headache Intractability: not intractable Qualified Code(s): R51 - Headache - Discharge Information *PRESCRIPTION DRUG MONITORING PROGRAM REVIEWED*: No *COPY OF PRESCRIPTION DRUG MONITORING REPORT IN PATIENT HERNANDO: No Instructions: Abdominal Pain, Adult, [id number] Referrals: Omkar Harley MD [Primary Care Provider] - Forms: ED Department Discharge Additional Instructions: You have been evaluated in the ED tonight for your abdominal pain and migraine. You have been given medications that have alleviated your pain at this time. This was Toradol, Reglan (anti-nausea), Benadryl, and IV fluids. If you should develop a headache and abdominal pain, please try to take at least 600mg Ibuprofen, your previous Zofran prescription dose, 25mg Benadryl, and some oral fluids to see if this doesn't alleviate your symptoms. Your lab work at this ED visit was within normal limits. There was no blood in your urine to suggest that your kidney stones have moved any further. Please return to the ED if your symptoms should change or worsen however. - My Orders Last 24 Hours: My Active Orders 08/13/18 19:01 Peripheral IV Care [RC] . DIRECTED Sodium Chloride 0.9% [Saline Flush] 10 ml FLUSH ASDIRECTED PRN Peripheral IV Insertion Adult [OM.PC] Routine 08/13/18 19:02 Sodium Chloride 0.9% [Normal Saline] 1,000 ml IV ASDIRECTED 08/13/18 19:55 UA W/MICROSCOPIC [URIN] Stat - Assessment/Plan Last 24 Hours: My Active Orders 08/13/18 19:01 Peripheral IV Care [RC] . DIRECTED Sodium Chloride 0.9% [Saline Flush] 10 ml FLUSH ASDIRECTED PRN Peripheral IV Insertion Adult [OM.PC] Routine 08/13/18 19:02 Sodium Chloride 0.9% [Normal Saline] 1,000 ml IV ASDIRECTED 08/13/18 19:55 UA W/MICROSCOPIC [URIN] Stat
== END 2018-08-13 20:35 | disposition home or self-care (01) ==
LOC: JD.ED 18:35 → SUPCPDRO 18:35 → JD.ED 20:35
DX: R51 Headache (principal); J45.909 Unspecified asthma, uncomplicated; Z79.899 Other long term (current) drug therapy; Z91.09 Other allergy status, other than to drugs and biological substances
CPT/HCPCS: 36415; 80053; 81001; 85007; 85027; 96361; 96374; 96375; 99284; J1200; J1885; J2765; J7040

== ENCOUNTER 2019-12-31 18:21 | Emergency (ER) | payer BC ==
[2019-12-31 18:43] VITALS: BP 130/112; PULSE 72
[2019-12-31] MEDS ORDERED: traMADol 50 MG Tab PO ONE (19:15)
--- NOTE | 2019-12-31 19:15 | EDM.PDOC ---
ED HPI GENERAL MEDICAL PROBLEM - General Chief Complaint: General Stated Complaint: PAIN ISSUE Time Seen by Provider: 12/31/19 18:41 Source of Information: Reports: Patient, RN Notes Reviewed History Limitations: Reports: No Limitations - History of Present Illness INITIAL COMMENTS - FREE TEXT/NARRATIVE: Patient is a 39-year-old female who presents to the ED for the evaluation of pain throughout her entire body. Patient notes she was recently diagnosed with fibromyalgia from her primary care provider Dr. Omkar Alfonso in September. She was started on duloxetine and gabapentin. She states she has been taking these faithfully, and has not had any recent increase in medication dosage for this. She states over the last few days, she has pain all over her body, she notes thi s to be in her central abdomen, back and shoulders, right arm that shoots up to her shoulder. She states that her muscles feel super tense, and she is getting sharp shooting pains with movement. She states even her face hurts. She is not had any trauma, and she is denying any sick-like symptoms, cough/shortness of breath, fever/chills, nausea/vomiting/diarrhea. Patient did try to call her primary care doctor, Dr. Alfonso, but was instructed to come to the ER, he was not in the office, either today or tomorrow. Patient has been using ibuprofen at home, and this does not seem to be doing much for her at all. Generalized Pain Score (Numeric/FACES): 8 - Related Data Allergies Allergy/AdvReac Type Severity Reaction Status Date / Time medical tape Allergy Severe Rash Uncoded 12/31/19 18:34 Home Meds: Home Meds Albuterol [Ventolin HFA] 1 inh INH DAILY PRN 10/03/17 [History] Promethazine [Phenergan] 25 mg PO Q4H PRN 11/22/17 [History] SUMAtriptan [Imitrex] 50 mg PO ASDIRECTED PRN 11/22/17 [History] DULoxetine [Cymbalta] 60 mg PO DAILY 08/02/18 [History] Gabapentin [Neurontin] 600 mg PO TID 12/31/19 [History] Hydrocodone/Acetaminophen [Hydrocodone-Acetamin 10-325 mg] 1 each PO Q6H #12 tablet 12/31/19 [Rx] Past Medical History HEENT History: Reports: Other (See Below) Other HEENT History: States has sinus issues with previous surgery in 2007 Respiratory History: Reports: Asthma Other Respiratory History: exercise-induced asthma. Genitourinary History: Reports: Renal Calculus Other Genitourinary History: ovarian cysts [employer] History: Reports: Dysfunctional Uterine Bleeding, Other [employer] History: D&C 2014. Ovarian Cyst removal 2013. Csection 2007. breast augmentation. yeast infection Musculoskeletal History: Reports: Back Pain, Chronic Neurological History: Reports: Migraines Psychiatric History: Reports: Other (See Below) Other Psychiatric History: fibromyalgia Hematologic History: Reports: Anemia, Iron Deficiency Other Hematologic History: during . - Infectious Disease History Infectious Disease History: Reports: Chicken Pox - Past Surgical History HEENT Surgical History: Reports: Naso-Sinus Surgery, Oral Surgery GI Surgical History: Reports: Appendectomy, Cholecystectomy Other GI Surgeries/Procedures: 1998 Female Surgical History: Reports: Breast Implant, Section, D&C, Ureteral Stent, Other (See Below) Musculoskeletal Surgical History: Reports: Arthroscopic Knee Social & Family History - Family History Musculoskeletal: Reports: RA Other Musculoskeletal Family History: Mother Oncologic: Reports: Prostate Other Oncologic Family History: Maternal Grandpa - Tobacco Use Smoking Status *Q: Never Smoker - Caffeine Use Caffeine Use: Reports: None Other Caffeine Use: rarely - Recreational Drug Use Recreational Drug Use: No - Living Situation & Occupation Living situation: Reports: , with Spouse, with Family (4 sons) Occupation: Employed ([employer]) ED ROS GENERAL - Review of Systems Review Of Systems: Comprehensive ROS is negative, except as noted in HPI. ED EXAM, GENERAL - Physical Exam Exam: See Below Exam Limited By: No Limitations General Appearance: Alert, WD/WN, No Apparent Distress (pt appears to be in a moderate amount of pain, she is tearful at any movement of her body, and states that everything hurts) Respiratory/Chest: No Respiratory Distress, Lungs Clear, Normal Breath Sounds, No Accessory Muscle Use, Chest Non-Tender Cardiovascular: Normal Peripheral Pulses, Regular Rate, Rhythm, No Murmur GI/Abdominal: Normal Bowel Sounds, Soft, Non-Tender, No Distention, No Mass Extremities: Normal Inspection, Normal Capillary Refill Neurological: Alert, Oriented, Normal Cognition, No Motor/Sensory Deficits Psychiatric: Tearful Skin Exam: Warm, Dry, Intact, Normal Color, No Rash Course - Vital Signs Last Recorded V/S: Last Vital Signs Temp 98.6 F 12/31/19 18:41 Pulse 72 12/31/19 18:41 Resp 20 12/31/19 18:41 BP 130/112 H 12/31/19 18:41 Pulse Ox 100 12/31/19 18:41 - Orders/Labs/Meds Meds: Medications Discontinued Medications Generic Name Dose Route Start Last Admin Trade Name Freq PRN Reason Stop Dose Admin Hydrocodone Bitart/Acetaminophen 1 tab 12/31/19 20:31 12/31/19 20:45 Tovey 325-5 Mg PO 12/31/19 20:32 1 tab ONETIME ONE Administration Tramadol HCl 50 mg 12/31/19 19:15 12/31/19 19:27 Ultram PO 12/31/19 19:16 50 mg ONETIME ONE Administration - Re-Assessments/Exams Free Text/Narrative Re-Assessment/Exam: 12/31/19 19:09 Patient presents to the ED for all over body pain, this is most likely a pain flare of her fibromyalgia, she is on the appropriate therapy. Her provider referred her here specifically for pain management as he is not in the office today or tomorrow. I will trial her on tramadol and have her follow up with him on saturday. 12/31/19 20:32 The patient reported no pain relief at all from the tramadol. I have ordered 1 tablet of Tovey to see if this might help, at least get her pain relief over the weekend. She was willing to try this. Departure - Departure Time of Disposition: 19:18 Disposition: Home, Self-Care 01 Condition: Good Clinical Impression: Fibromyalgia muscle pain - Discharge Information *PRESCRIPTION DRUG MONITORING PROGRAM REVIEWED*: Yes *COPY OF PRESCRIPTION DRUG MONITORING REPORT IN PATIENT HERNANDO: No Prescriptions: Hydrocodone/Acetaminophen [Hydrocodone-Acetamin 10-325 mg] 1 each PO Q6H #12 tablet Instructions: Myofascial Pain Syndrome and Fibromyalgia Referrals: Omkar Harley MD [Primary Care Provider] - Forms: ED Department Discharge Additional Instructions: You were evaluated in the ER today for your fibromyalgia pain. You were given a prescription for Hydrocodone/acetaminophen 10/325mg, which is a pain reliever. Please take 1 tab q6h PRN for pain not relieved by Tylenol or ibuprofen alone. You were given enough only to get through the weekend so that you can follow up with your primary care provider on Saturday. Please take as few of these as possible; as these medications can be addictive. Do not drive while taking these medications. It is highly recommended that you increase your level of physical activity if you are suffering from fibromyalgia, as this can help with some of the chronic pain that you experience with the disease. Please return to the ED if your symptoms change or worsen. Sepsis Event Note (ED) - Evaluation Sepsis Screening Result: No Definite Risk - Focused Exam Vital Signs: Vital Signs Temp Pulse Resp BP Pulse Ox 12/31/19 18:41 98.6 F 72 20 130/112 H 100
[2019-12-31] MEDS ORDERED: Acetaminophen/HYDROcodone 325-5 MG Tab PO ONE (20:31)
== END 2019-12-31 21:02 | disposition home or self-care (01) ==
LOC: JD.ED 18:21
DX: M79.7 Fibromyalgia (principal); J45.909 Unspecified asthma, uncomplicated; Z79.899 Other long term (current) drug therapy; Z91.048 Other nonmedicinal substance allergy status
CPT/HCPCS: 99283; A9270

== ENCOUNTER 2020-01-12 07:05 | Day surgery (SDC) | payer BC ==
[~2020-01-12 07:05] MED LIST: Lactated Ringers 1,000 ML IV SCH; Lidocaine 1% 4 ML ONE; Lidocaine 1%/Sod Bicarbonate in NS 8.4% 1 ML Syringe IDERM PRN; Propofol 200 MG/20 ML SDV ONE; Rocuronium 50 MG/5 ML Vial ONE; Sodium Chloride 0.9% 10 ML Syringe FLUSH PRN; ceFAZolin 1 GM Vial ONE
[2020-01-12] MEDS ORDERED: fentaNYL 250 MCG/5 ML SDV ONE (07:14)
[2020-01-12] MEDS ORDERED: Propofol 200 MG/20 ML SDV ONE ×2 (07:14→08:16)
[2020-01-12] MEDS ORDERED: Ketamine 500 mg/10 ML MDV ONE (07:15)
[2020-01-12] MEDS ORDERED: Midazolam 1 MG/ML 2 ML SDV ONE (07:16)
[2020-01-12] MEDS ORDERED: Lidocaine 1% 4 ML ONE (07:16)
[2020-01-12] MEDS ORDERED: Bupivacaine 0.5% 30 ML SDV ONE (07:25)
[2020-01-12] MEDS ORDERED: Lidocaine 1% with EPINEPHrine 1:100,000 20 ML MDV ONE (07:25)
[2020-01-12] MEDS ORDERED: Sodium Chloride 0.9% 50 ML SDV ONE (07:25)
[2020-01-12] MEDS ORDERED: Scopolamine 1.5 MG Transdermal Patch TRDERM SCH (07:30)
[2020-01-12] MEDS ORDERED: HYDROmorphone 0.5 MG/0.5 ML Syringe IVPUSH PRN (07:36)
[2020-01-12] MEDS ORDERED: Ondansetron 4 MG/2 ML SDV IVPUSH PRN ×2 (07:36→09:08)
[2020-01-12] MEDS ORDERED: fentaNYL 100 MCG/2 ML SDV IVPUSH PRN (07:36)
--- NOTE | 2020-01-12 07:36 | PCM.PREANE ---
Preanesthetic Assessment - Procedure Proposed Procedure: LAVH with BSO - Anesthesia/Transfusion/Family Hx Anesthesia History: Prior Anesthesia Reaction Type of Anesthesia Reaction: Excessive Nausea/Vomiting Family History of Anesthesia Reaction: No - Review of Systems General: Fatigue (Chronic Fatigue Syndrome) Pulmonary: No Symptoms Cardiovascular: No Symptoms Gastrointestinal: No Symptoms Neurological: Headache (Migraines), Pre-Existing Deficit (Back and Hip Pain related to Fibromyalgia) Other: Reports: Depression, Anxiety - Physical Assessment NPO Status Date: 01/11/20 NPO Status Time: 23:30 Weight: 86 kg ASA Class: 2 Mental Status: Alert & Oriented x3 Airway Class: Mallampati = 2 Dentition: Reports: Normal Dentition Thyro-Mental Finger Breadths: 3 Mouth Opening Finger Breadths: 3 ROM/Head Extension: Full Lungs: Clear to Auscultation, Normal Respiratory Effort Cardiovascular: Regular Rate, Regular Rhythm, Tachycardia - Lab Values: Laboratory Last Values WBC 9.05 K/mm3 (3.98-10.04) 01/08/20 11:51 RBC 4.72 M/mm3 (3.98-5.22) 01/08/20 11:51 Hgb 14.6 gm/dl (11.2-15.7) 01/08/20 11:51 Hct 43.6 % (34.1-44.9) 01/08/20 11:51 MCV 92.4 fl (79.4-94.8) D 01/08/20 11:51 MCH 30.9 pg (25.6-32.2) 01/08/20 11:51 MCHC 33.5 g/dl (32.2-35.5) 01/08/20 11:51 RDW Std Deviation 42.2 fL (36.4-46.3) 01/08/20 11:51 Plt Count 326 K/mm3 (182-369) 01/08/20 11:51 MPV 9.6 fl (9.4-12.3) 01/08/20 11:51 Neut % (Auto) 59.5 % (34.0-71.1) 01/08/20 11:51 Lymph % (Auto) 28.3 % (19.3-51.7) 01/08/20 11:51 [place] % (Auto) 6.9 % (4.7-12.5) 01/08/20 11:51 Eos % (Auto) 5.1 (0.7-5.8) 01/08/20 11:51 Baso % (Auto) 0.1 % (0.1-1.2) 01/08/20 11:51 Neut # (Auto) 5.39 K/mm3 (1.56-6.13) 01/08/20 11:51 Lymph # (Auto) 2.56 K/mm3 (1.18-3.74) 01/08/20 11:51 [place] # (Auto) 0.62 K/mm3 (0.24-0.36) H 01/08/20 11:51 Eos # (Auto) 0.46 K/mm3 (0.04-0.36) H 01/08/20 11:51 Baso # (Auto) 0.01 K/mm3 (0.01-0.08) 01/08/20 11:51 Sodium 138 mEq/L (136-145) 01/08/20 11:51 Potassium 3.7 mEq/L (3.5-5.1) 01/08/20 11:51 Chloride 103 mEq/L (98-107) 01/08/20 11:51 Carbon Dioxide 26 mEq/L (21-32) 01/08/20 11:51 Anion Gap 12.7 (5-15) 01/08/20 11:51 BUN 16 mg/dL (7-18) 01/08/20 11:51 Creatinine 1.0 mg/dL (0.55-1.02) 01/08/20 11:51 Est Cr Clr Drug Dosing TNP 01/08/20 11:51 Estimated GFR (MDRD) > 60 mL/min (>60) 01/08/20 11:51 BUN/Creatinine Ratio 16.0 (14-18) 01/08/20 11:51 Glucose 102 mg/dL (74-106) 01/08/20 11:51 Calcium 9.4 mg/dL (8.5-10.1) 01/08/20 11:51 Total Bilirubin 0.2 mg/dL (0.2-1.0) 01/08/20 11:51 AST 18 U/L (15-37) 01/08/20 11:51 ALT 48 U/L (14-59) 01/08/20 11:51 Alkaline Phosphatase 89 U/L (46-116) 01/08/20 11:51 Total Protein 8.2 g/dl (6.4-8.2) 01/08/20 11:51 Albumin 4.2 g/dl (3.4-5.0) 01/08/20 11:51 Globulin 4.0 gm/dL 01/08/20 11:51 Albumin/Globulin Ratio 1.1 (1-2) 01/08/20 11:51 HCG, Quant 0.0 mIU/mL 01/08/20 11:51 Urine Color Yellow (Yellow) 01/08/20 11:51 Urine Appearance Clear (Clear) 01/08/20 11:51 Urine pH 6.0 (5.0-8.0) 01/08/20 11:51 Ur Specific [place] 1.025 (1.005-1.030) 01/08/20 11:51 Urine Protein Negative (Negative) 01/08/20 11:51 Urine Glucose (UA) Negative (Negative) 01/08/20 11:51 Urine Ketones Negative (Negative) 01/08/20 11:51 Urine Occult Blood Trace-intact (Negative) H 01/08/20 11:51 Urine Nitrite Negative (Negative) 01/08/20 11:51 Urine Bilirubin Negative (Negative) 01/08/20 11:51 Urine Urobilinogen 0.2 (0.2-1.0) 01/08/20 11:51 Ur Leukocyte Esterase Negative (Negative) 01/08/20 11:51 Urine RBC 0-5 /hpf (0-5) 01/08/20 11:51 Urine WBC 0-5 /hpf (0-5) 01/08/20 11:51 Ur Epithelial Cells 0-5 /hpf (0-5) 01/08/20 11:51 Urine Bacteria Rare /hpf (FEW) 01/08/20 11:51 Urine Mucus Not seen /hpf (FEW) 01/08/20 11:51 Urine HCG, Qual Negative (NEGATIVE) 01/12/20 07:10 SARS-CoV-2 (PCR) Not detected (NOT DETECT) 01/08/20 09:00 Blood Type O POSITIVE 01/08/20 11:51 Gel Antibody Screen Negative 01/08/20 11:51 - Allergies Allergies/Adverse Reactions: Allergies Allergy/AdvReac Type Severity Reaction Status Date / Time medical tape Allergy Severe Rash Uncoded 01/11/20 13:57 - Anesthesia Plan Pre-Op Medication Ordered: Anxiolytic, Other (Scopalamine patch) - Acknowledgements Anesthesia Type Planned: General Anesthesia Pt an Appropriate Candidate for the Planned Anesthesia: Yes Alternatives and Risks of Anesthesia Discussed w Pt/Guardian: Yes Pt/Guardian Understands and Agrees with Anesthesia Plan: Yes PreAnesthesia Questionnaire HEENT History: Reports: Allergic Rhinitis, Impaired Vision, Sinusitis, Other (See Below) Cardiovascular History: Reports: None Respiratory History: Reports: Asthma Other Respiratory History: exercise-induced asthma. Gastrointestinal History: Reports: None Genitourinary History: Reports: Renal Calculus Other Genitourinary History: ovarian cysts LOG WASHER History: Reports: Dysfunctional Uterine Bleeding, Other OB/BYN History: D&C 2014. Ovarian Cyst removal 2013. Csection 2007. breast augmentation. yeast infection Musculoskeletal History: Reports: Arthritis, Back Pain, Chronic, Fibromyalgia Neurological History: Reports: Headaches, Chronic, Migraines Psychiatric History: Reports: Anxiety, Depression Other Psychiatric History: fibromyalgia Hematologic History: Reports: Anemia, Iron Deficiency Other Hematologic History: during . Immunologic History: Reports: None Oncologic (Cancer) History: Reports: None Dermatologic History: Reports: Other (See Below) Other Dermatologic History: nevus - Infectious Disease History Infectious Disease History: Reports: None - Past Surgical History Head Surgeries/Procedures: Reports: None HEENT Surgical History: Reports: Naso-Sinus Surgery, Oral Surgery Other HEENT Surgeries/Procedures: Sinus Surgery 2007 Cardiovascular Surgical History: Reports: None Respiratory Surgical History: Reports: None GI Surgical History: Reports: Appendectomy, Cholecystectomy Other GI Surgeries/Procedures: 1998 Female Surgical History: Reports: Breast Implant, Section, D&C, Ureteral Stent Endocrine Surgical History: Reports: None Neurological Surgical History: Reports: None Musculoskeletal Surgical History: Reports: Arthroscopic Knee Other Musculoskeletal Surgeries/Procedures:: right knee miniscus surgery 2002 Oncologic Surgical History: Reports: None Dermatological Surgical History: Reports: None - SUBSTANCE USE Smoking Status *Q: Never Smoker Recreational Drug Use History: No - HOME MEDS Home Medications: Home Meds Albuterol [Ventolin HFA] 1 - 2 inh INH Q4H PRN 10/03/17 [History] Promethazine [Phenergan] 25 mg PO Q4H PRN 11/22/17 [History] DULoxetine [Cymbalta] 60 mg PO DAILY 08/02/18 [History] Gabapentin [Neurontin] 600 mg PO TID 12/31/19 [History] Cyclobenzaprine [Flexeril] 5 - 10 mg PO TID PRN 01/11/20 [History] Fexofenadine/Pseudoephedrine [Kathe-D 24 Hour Tablet] 1 tab PO DAILY PRN 01/11/20 [History] Glutamic Acid [l-Glutamic Acid] 1 dose PO DAILY 01/11/20 [History] Phentermine HCl 37.5 mg PO DAILY 01/11/20 [History] Pseudoephedrine HCl [Sudafed] 30 mg PO ASDIRECTED PRN 01/11/20 [History] SUMAtriptan succinate [Imitrex] 100 mg PO ASDIRECTED PRN 01/11/20 [History] - CURRENT (IN HOUSE) MEDS Current Meds: Current Medications Lactated Ringer's (Ringers, Lactated) 1,000 mls @ 125 mls/hr IV ASDIRECTED TRACIE Stop: 01/12/20 23:00 Lidocaine/Sodium Bicarbonate (Buffered Lidocaine 1% In Ns 8.4%) 0.25 ml IDERM ONETIME PRN PRN Reason: Prior to IV Start Stop: 01/12/20 18:00 Scopolamine (Transderm-Scop) 1.5 mg TRDERM ONETIME TRACIE Stop: 01/12/20 13:00 Sodium Chloride (Saline Flush) 10 ml FLUSH ASDIRECTED PRN PRN Reason: Keep Vein Open Stop: 01/12/20 18:00 Discontinued Medications Bupivacaine HCl (Marcaine 0.5%) Confirm Administered Dose 30 ml .ROUTE .STK-MED ONE Stop: 01/12/20 07:26 Cefazolin Sodium (Ancef) Confirm Administered Dose 2 gm .ROUTE .STK-MED ONE Stop: 01/12/20 07:05 Fentanyl (Sublimaze) Confirm Administered Dose 250 mcg .ROUTE .STK-MED ONE Stop: 01/12/20 07:15 Lidocaine HCl (Xylocaine-Mpf 1%) Confirm Administered Dose 4 mls @ as directed .ROUTE .STK-MED ONE Stop: 01/12/20 07:01 Lidocaine HCl (Xylocaine-Mpf 1%) Confirm Administered Dose 4 mls @ as directed .ROUTE .STK-MED ONE Stop: 01/12/20 07:17 Ketamine HCl (Ketalar) Confirm Administered Dose 500 mg .ROUTE .STK-MED ONE Stop: 01/12/20 07:16 Lidocaine/Epinephrine (Xylocaine 1% With Epinephrine 1:100,000) Confirm Administered Dose 20 ml .ROUTE .STK-MED ONE Stop: 01/12/20 07:26 Midazolam HCl (Versed 1 Mg/Ml) Confirm Administered Dose 2 mg .ROUTE .STK-MED ONE Stop: 01/12/20 07:17 Propofol (Diprivan 20 Ml) Confirm Administered Dose 200 mg .ROUTE .STK-MED ONE Stop: 01/12/20 07:01 Propofol (Diprivan 20 Ml) Confirm Administered Dose 200 mg .ROUTE .STK-MED ONE Stop: 01/12/20 07:15 Rocuronium [place] (Zemuron) Confirm Administered Dose 50 mg .ROUTE .STK-MED ONE Stop: 01/12/20 07:01 Sodium Chloride (Normal Saline) Confirm Administered Dose 50 ml .ROUTE .STK-MED ONE Stop: 01/12/20 07:26
[2020-01-12] MEDS ORDERED: Dexamethasone 4 MG/ML 5 ML MDV ONE (08:11)
[2020-01-12] MEDS ORDERED: Ketorolac 30 MG/ML SDV ONE (09:02)
[2020-01-12] MEDS ORDERED: Acetaminophen/oxyCODONE 325-5 MG Tab PO PRN (09:08)
--- NOTE | 2020-01-12 09:15 | PCM.OPNOTE ---
- General Post-Op/Procedure Note Date of Surgery/Procedure: 01/12/20 Operative Procedure(s): Total vaginal hysterectomy with bilateral salpingectomy Findings: Uterus was upper limits of normal size. There is a Mirena IUD within the uterine cavity. Cervix was multiparous in appearance. Small benign cyst less than 1 cm on left ovary. Right ovary was benign in appearance. Fallopian tubes were without pathology. Pre Op Diagnosis: 1. Pelvic pain. 2. Dysmenorrhea. 3. Irregular uterine bleeding Post-Op Diagnosis: Same Anesthesia Technique: General ET Tube Other Anesthesia Type: Lidocaine quarter percent with [id number] mLlocal Primary Surgeon: Nathanael Mas Secondary Surgeon: Steffen Crook Anesthesia Provider: Anastasia Soria Graduate Fellow: Tami Sutherland Reason Graduate Fellow Was Necessary: Retraction, assistance, patient safety, quality of care. Pathology: Uterus, bilateral fallopian tubes in one specimen container. IUD left inside the uterine cavity but visualized. Fluid Replacement, Intraop: 1,200 Output, Urine Amount: 100 EBL in mLs: 25 Drain/Tube Comments:: Indwelling bladder catheter during surgery only Complications: None Condition: Good Free Text/Narrative:: Surgery duration: 34 minutes Procedure: The patient was placed in supine position on the operating table. Patient received 2 g of Ancef preoperatively for infection prophylaxis and had sequential compression devices in place for DVT prophylaxis. General endotracheal anesthesia was accomplished. After positioning, and adequate prep and drape, the procedure was then performed. Sterile speculum was placed in the vagina and cervix was visualized. Cervix was injected with lidocaine quarter percent with epinephrine-20 mL used. A full circumference incision was made in the cervical epithelium. The bladder was pushed well back off cervix. Posterior cul-de-sac was then entered sharply without problems. Left uterosacral was crossclamped with a Enseal vessel closure system. The left uterosacral and then the right uterosacral ligament pedicles were developed using the Enseal system. The anterior cul-de-sac was then entered without problems and the uterine vasculature, cardinal ligament and broad ligament then developed using Enseal vessel closure system. The uterus was inverted at this time and upper broad ligament fallopian tube pedicles were crossclamped with Ricardo clamps. Specimen was totally removed. Both these pedicles were then secured with a Enseal vessel closure system. Left and right fallopian tube was normal in appearance.. Using Enseal vessel closure system each of the tubes was then removed and sent with the specimen. The patient was found to be hemostatically intact at this time. Vaginal cuff was sutured for hemostatic reasons with a running locked suture of 0 Monocryl from the 2 o'clock position to the 10 o'clock position posteriorly. Vaginal cuff was then closed from right to left side with a running locked suture of 0 Monocryl. Patient was returned to supine position and awakened from general endotracheal anesthesia. Indwelling bladder catheter which had been placed at the beginning of the procedure was removed at the end of the procedure. She tolerated the procedure and left the operating room in satisfactory condition.
--- NOTE | 2020-01-12 09:18 | PCM.POSTAN ---
POST ANESTHESIA ASSESSMENT - MENTAL STATUS Mental Status: Other (Drowsy, arousable) - VITAL SIGNS Vital Signs: Last Vital Signs Temp 36.7 C 01/12/20 07:10 Pulse 102 H 01/12/20 07:10 Resp 16 01/12/20 07:10 BP 117/90 01/12/20 07:10 Pulse Ox 96 01/12/20 07:10 0912 114/70 91 12 99% 98.1F - RESPIRATORY Respiratory Status: Respiratory Rate WNL, Airway Patent, O2 Saturation Stable, Supplemental Oxygen - CARDIOVASCULAR CV Status: Pulse Rate WNL, Blood Pressure Stable - GASTROINTESTINAL GI Status: No Symptoms - PAIN Pain Score: 0 - POST OP HYDRATION Hydration Status: Adequate & Stable
--- NOTE | 2020-01-12 11:25 | PCM48HPAN ---
Post Anesthesia Note - EVALUATION WITHIN 48HRS OF ANESTHETIC Vital Signs in Normal Range: Yes Patient Participated in Evaluation: Yes Respiratory Function Stable: Yes Airway Patent: Yes Cardiovascular Function Stable: Yes Hydration Status Stable: Yes Pain Control Satisfactory: Yes (PO pain pills given for pain at this time. ) Nausea and Vomiting Control Satisfactory: Yes Mental Status Recovered: Yes Vital Signs: Last Vital Signs Temp 36.9 C 01/12/20 10:00 Pulse 102 H 01/12/20 07:10 Resp 21 H 01/12/20 11:00 BP 123/84 01/12/20 11:00 Pulse Ox 98 01/12/20 11:00
[2020-01-12 14:15] VITALS: BP 120/83; PULSE 106
[2020-01-12] MEDS ORDERED: Ketorolac 30 MG/ML SDV IVPUSH ONE (15:15)
[2020-01-12] MEDS ORDERED: Ibuprofen 600 MG Tab PO PRN (21:15)
== END 2020-01-12 14:05 | disposition home or self-care (01) ==
LOC: JD.SDS 07:05
PROVIDERS: ATTEND Obstetrics & Gynecology
DX: N80.0 Endometriosis of uterus (principal); N72 Inflammatory disease of cervix uteri; N83.8 Other noninflammatory disorders of ovary, fallopian tube and broad ligament; N87.9 Dysplasia of cervix uteri, unspecified; Z01.812 Encounter for preprocedural laboratory examination; Z20.828 Contact with and (suspected) exposure to other viral communicable diseases; J45.909 Unspecified asthma, uncomplicated; F41.8 Other specified anxiety disorders; M79.7 Fibromyalgia; G43.A0 Cyclical vomiting, in migraine, not intractable; Z97.5 Presence of (intrauterine) contraceptive device; Z87.891 Personal history of nicotine dependence; Z79.899 Other long term (current) drug therapy
CPT/HCPCS: 36415; 58262; 80053; 81001; 81025; 84702; 85025; 86850; 86900; 86901; 87635; A9270; J0690; J1100; J1170; J1885; J2001; J2250; J2704; J2710; J3010; J3490; J7120; 00944; U0002

== ENCOUNTER 2020-01-25 15:21 | Observation (INO) | payer BC ==
[2020-01-25] MEDS: Lactated Ringers 1,000 ML IV SCH (15:50)
[2020-01-25] MEDS ORDERED: Piperacillin/Tazobactam 4.5 GM in Sodium Chloride 0.9% 100 ML IV ONE (16:00)
[2020-01-25] MEDS: HYDROmorphone 0.5 MG/0.5 ML Syringe IVPUSH PRN ×4 (16:10→22:30)
[2020-01-25] MEDS ORDERED: Acetaminophen 325 MG Tab PO ONE (23:47)
[2020-01-25] MEDS: HYDROmorphone 1 MG/ML Syringe IVPUSH PRN (23:59)
[2020-01-26] MEDS ORDERED: SUMAtriptan 50 MG Tab PO ONE ×2 (00:14→01:07)
[2020-01-26] MEDS: Piperacillin/Tazobactam 4.5 GM in Sodium Chloride 0.9% 100 ML IV SCH ×3 (00:48→16:18)
[2020-01-26] MEDS: Ondansetron 4 MG/2 ML SDV IVPUSH PRN ×2 (00:49→04:16)
[2020-01-26] MEDS: Lactated Ringers 1,000 ML IV SCH (01:15)
[2020-01-26] MEDS: HYDROmorphone 1 MG/ML Syringe IVPUSH PRN ×5 (02:22→11:29)
[2020-01-26] MEDS ORDERED: Metoclopramide 10 MG/2 ML SDV IVPUSH ONE (06:31)
[2020-01-26] MEDS ORDERED: Promethazine 25 MG/ML SDV IM ONE (08:28)
--- NOTE | 2020-01-26 08:56 | PCM.PREANE ---
Preanesthetic Assessment - Anesthesia/Transfusion/Family Hx Anesthesia History: Prior Anesthesia Without Reaction Family History of Anesthesia Reaction: No Transfusion History: No Prior Transfusion(s) - Review of Systems General: No Symptoms Pulmonary: No Symptoms Cardiovascular: No Symptoms Gastrointestinal: Abdominal Pain (since surgery) Neurological: Headache (migraine now- holding head) - Physical Assessment NPO Status Date: 01/25/20 NPO Status Time: 23:30 Vital Signs: Last Vital Signs Temp 98.1 F 01/26/20 03:08 Pulse 100 01/26/20 03:08 Resp 16 01/26/20 03:08 BP 123/80 01/26/20 03:08 Pulse Ox 97 01/26/20 03:08 Height: 5 ft 8 in Weight: 87.09 kg ASA Class: 2 Mental Status: Alert & Oriented x3 Airway Class: Mallampati = 1 Dentition: Reports: Normal Dentition Thyro-Mental Finger Breadths: 3 Mouth Opening Finger Breadths: 3 ROM/Head Extension: Full Lungs: Clear to Auscultation, Normal Respiratory Effort Cardiovascular: Regular Rate, Regular Rhythm - Lab Values: Laboratory Last Values SARS-CoV-2 RNA (MISAEL) Negative (NEGATIVE) 01/25/20 16:00 - Allergies Allergies/Adverse Reactions: Allergies Allergy/AdvReac Type Severity Reaction Status Date / Time adhesive tape Allergy Rash Verified 01/25/20 15:45 - Blood Blood Available: No - Acknowledgements Anesthesia Type Planned: General Anesthesia, MAC Pt an Appropriate Candidate for the Planned Anesthesia: Yes Alternatives and Risks of Anesthesia Discussed w Pt/Guardian: Yes Pt/Guardian Understands and Agrees with Anesthesia Plan: Yes PreAnesthesia Questionnaire HEENT History: Reports: Allergic Rhinitis, Other (See Below) Other HEENT History: States has sinus issues with previous surgery in 2007 Cardiovascular History: Reports: None Respiratory History: Reports: Asthma Other Respiratory History: exercise-induced asthma. Gastrointestinal History: Reports: None Genitourinary History: Reports: Renal Calculus Other Genitourinary History: ovarian cysts HIV NURSE History: Reports: Dysfunctional Uterine Bleeding, , Other (See Below) Other OB/BYN History: D&C 2014. Ovarian Cyst removal 2013. Csection 2008. breast augmentation. yeast infection. TVH Musculoskeletal History: Reports: Back Pain, Chronic, Fibromyalgia Neurological History: Reports: Migraines Psychiatric History: Reports: Depression, Other (See Below) Other Psychiatric History: history of post depression Hematologic History: Reports: Anemia, Iron Deficiency Other Hematologic History: during . Immunologic History: Reports: None Oncologic (Cancer) History: Reports: None Dermatologic History: Reports: Other (See Below) Other Dermatologic History: nevus - Infectious Disease History Infectious Disease History: Reports: Chicken Pox - Past Surgical History Head Surgeries/Procedures: Reports: None Cardiovascular Surgical History: Reports: None Respiratory Surgical History: Reports: None GI Surgical History: Reports: Appendectomy, Cholecystectomy Other GI Surgeries/Procedures: 1998 Female Surgical History: Reports: Breast Implant, Section, D&C, Hysterectomy, Ureteral Stent, Other (See Below) Endocrine Surgical History: Reports: None Oncologic Surgical History: Reports: None Dermatological Surgical History: Reports: None - SUBSTANCE USE Tobacco Use Status *Q: Never Tobacco User Tobacco Use Within Last Twelve Months: No Second Hand Smoke Exposure: No Days Per Week of Alcohol Use: 0 Recreational Drug Use History: No - HOME MEDS Home Medications: Home Meds Albuterol [Ventolin HFA] 1 - 2 inh INH Q4H PRN 10/03/17 [History] Promethazine [Phenergan] 25 mg PO Q4H PRN 11/22/17 [History] DULoxetine [Cymbalta] 60 mg PO DAILY 08/02/18 [History] Gabapentin [Neurontin] 600 mg PO TID 12/31/19 [History] Cyclobenzaprine [Flexeril] 5 - 10 mg PO TID PRN 01/11/20 [History] Fexofenadine/Pseudoephedrine [Kathe-D 24 Hour Tablet] 1 tab PO DAILY PRN 01/11/20 [History] Glutamic Acid [l-Glutamic Acid] 1 dose PO DAILY PRN 01/11/20 [History] Phentermine HCl 37.5 mg PO DAILY 01/11/20 [History] Pseudoephedrine HCl [Sudafed] 30 mg PO ASDIRECTED PRN 01/11/20 [History] SUMAtriptan succinate [Imitrex] 100 mg PO ASDIRECTED PRN 01/11/20 [History] Ibuprofen [Motrin] 600 mg PO Q4H PRN tablet 01/12/20 [Rx] - CURRENT (IN HOUSE) MEDS Current Meds: Current Medications Hydromorphone HCl (Dilaudid) 1 mg IVPUSH Q2H PRN PRN Reason: Abdominal Pain Last Admin: 01/26/20 06:13 Dose: 1 mg Documented by: Lactated Ringer's (Ringers, Lactated) 1,000 mls @ 125 mls/hr IV ASDIRECTED TRACIE Last Admin: 01/26/20 01:15 Dose: 125 mls/hr Documented by: Piperacillin Sod/Tazobactam (Sod 4.5 gm/ Sodium Chloride) 100 mls @ 25 mls/hr IV Q8H TRACIE Last Admin: 01/26/20 00:48 Dose: 25 mls/hr Documented by: Ondansetron HCl (Zofran) 4 mg IVPUSH Q4H PRN PRN Reason: Nausea Last Admin: 01/26/20 04:16 Dose: 4 mg Documented by: Discontinued Medications Acetaminophen (Tylenol) 650 mg PO NOW ONE Stop: 01/25/20 23:48 Last Admin: 01/26/20 00:26 Dose: 650 mg Documented by: Hydromorphone HCl (Dilaudid) 0.5 mg IVPUSH Q2H PRN PRN Reason: Pain Last Admin: 01/25/20 22:30 Dose: 0.5 mg Documented by: Piperacillin Sod/Tazobactam (Sod 4.5 gm/ Sodium Chloride) 100 mls @ 200 mls/hr IV ONETIME ONE Stop: 01/25/20 16:29 Last Admin: 01/25/20 16:15 Dose: 200 mls/hr Documented by: Metoclopramide HCl (Reglan) 10 mg IVPUSH ONETIME ONE Stop: 01/26/20 06:32 Last Admin: 01/26/20 06:40 Dose: 10 mg Documented by: Promethazine HCl (Phenergan) 25 mg IM ONETIME ONE Stop: 01/26/20 08:29 Last Admin: 01/26/20 08:49 Dose: 25 mg Documented by: Sumatriptan Succinate (Imitrex) 100 mg PO ONETIME ONE Stop: 01/26/20 00:15 Last Admin: 01/26/20 00:28 Dose: 100 mg Documented by: Sumatriptan Succinate (Imitrex) 100 mg PO ONETIME ONE Stop: 01/26/20 01:08 Last Admin: 01/26/20 01:25 Dose: 100 mg Documented by:
[2020-01-26] MEDS ORDERED: Scopolamine 1.5 MG Transdermal Patch TOP ONE (09:06)
[2020-01-26] MEDS ORDERED: Bupivacaine 0.5% 30 ML SDV ONE (10:52)
[2020-01-26] MEDS ORDERED: Lidocaine 1% with EPINEPHrine 1:100,000 20 ML MDV ONE (10:52)
[2020-01-26] MEDS ORDERED: Sodium Chloride 0.9% 50 ML SDV ONE (10:52)
[2020-01-26] MEDS ORDERED: Rocuronium 50 MG/5 ML Vial ONE (10:56)
[2020-01-26] MEDS ORDERED: Lidocaine 1% 4 ML ONE (10:56)
[2020-01-26] MEDS ORDERED: fentaNYL 100 MCG/2 ML SDV ONE ×2 (10:57→12:55)
[2020-01-26] MEDS ORDERED: Propofol 200 MG/20 ML SDV ONE (10:57)
[2020-01-26] MEDS ORDERED: Acetaminophen 1,000 MG in Premix Bag 1 BAG IV ONE (11:44)
[2020-01-26] MEDS ORDERED: Dexamethasone 4 MG/ML 5 ML MDV ONE (12:10)
[2020-01-26] MEDS ORDERED: Ondansetron 4 MG/2 ML SDV ONE (12:10)
[2020-01-26] MEDS ORDERED: Ketorolac 30 MG/ML SDV ONE (12:18)
--- NOTE | 2020-01-26 12:40 | PCM.POSTAN ---
POST ANESTHESIA ASSESSMENT - MENTAL STATUS Mental Status: Alert, Oriented - VITAL SIGNS Vital Signs: Last Vital Signs Temp 98.2 F 01/26/20 09:25 Pulse 91 01/26/20 09:25 Resp 16 01/26/20 09:25 BP 119/68 01/26/20 09:25 Pulse Ox 99 01/26/20 09:25 130/75 97% on 2L 102 16 97.8f - RESPIRATORY Respiratory Status: Respiratory Rate WNL, Airway Patent, O2 Saturation Stable, Supplemental Oxygen - CARDIOVASCULAR CV Status: Pulse Rate WNL, Blood Pressure Stable - GASTROINTESTINAL GI Status: No Symptoms - PAIN Pain Score: 0 - POST OP HYDRATION Hydration Status: Adequate & Stable
[2020-01-26] MEDS ORDERED: fentaNYL 100 MCG/2 ML SDV IVPUSH PRN (12:53)
[2020-01-26] MEDS ORDERED: Ondansetron 4 MG/2 ML SDV IVPUSH PRN ×2 (12:53→15:31)
[2020-01-26] MEDS ORDERED: HYDROmorphone 0.5 MG/0.5 ML Syringe IVPUSH PRN ×2 (12:53→15:31)
--- NOTE | 2020-01-26 12:54 | PCM.OPNOTE ---
- General Post-Op/Procedure Note Date of Surgery/Procedure: 01/26/20 Operative Procedure(s): Exam under anesthesia, incision and drainage of vaginal cuff abscess and placement of a drain. Findings: Patient had abscess just above the vaginal cuff that extended cephalad approximately 9 cm and was approximately 4 cm in diameter. With opening of the vaginal cuff patient had what appeared to be old clot present in this area. This was aspirated out with total amount removed approximately 75 mL. Cuff was intact. No other abnormalities were noted. Pre Op Diagnosis: 1. Vaginal cuff abscess Post-Op Diagnosis: Same Anesthesia Technique: General ET Tube Primary Surgeon: Nathanael Mas Secondary Surgeon: Steffen Crook Anesthesia Provider: Dylan Carreon Support Merchandiser: Ligia Sandhu Pathology: Aerobic and anaerobic cultures were sent of vaginal cuff abscess fluid. Fluid Replacement, Intraop: 1,400 EBL in mLs: 75 (This was removed from the vaginal cuff abscess site) Drain/Tube Comments:: Aguilar catheter was placed into the abscess site. Balloon is inflated to 10 cc with normal saline. It was attached to a bulb aspiration device. Complications: None Condition: Good Free Text/Narrative:: Intake & Output 01/25/20 01/26/20 01/26/20 22:59 06:59 14:59 Intake Total 100 1100 Output Total 600 200 Balance 100 500 -200 Surgery duration: 18 minutes Procedure: The patient was taken to the operating room placed in supine position operating table. She just received a dose of Zosyn 4.5 g IV. Consent was appropriately signed for exam under anesthesia, drainage of vaginal cuff abscess, possible laparoscopy. Patient had sequential compression stockings in place. She is given general endotracheal anesthesia. After adequate anesthesia patient was placed in a dorsolithotomy position, prepped and draped in usual fashion. She had voided on-call to the OR. Weighted speculum is placed in the vagina. The cervix was noted to be surgically absent secondary to previous hysterectomy. Vaginal cuff appeared intact with sutures in place. Just posterior to the left side of the vaginal cuff closure was a slight bulge consistent with the findings on CT evaluation indicating the presence of vaginal cuff abscess. Vaginal cuff is open in this area. With that approximately 75 cc of dark red blood was aspirated from this area. Cultures were obtained aerobic and anaerobic. This area was evacuated in its entirety. A Aguilar catheter was then placed in this area and bulb was inflated. 4 sutures were placed back into the vaginal cuff with Aguilar bulb retained in that area for drainage. Aguilar catheter stem was modified to allow for elbow with aspiration device which was placed and activated. At this time the remainder blood is evacuated vagina patient was returned to the supine position. She is awakened from general endotracheal anesthesia. She tolerated the procedure well. She is discharged in good condition.
[2020-01-26] MEDS ORDERED: Lactated Ringers 1,000 ML IV SCH (15:31)
[2020-01-26] MEDS: Ibuprofen 600 MG Tab PO PRN (19:54)
[2020-01-26] MEDS: Docusate Sodium 100 MG Cap PO SCH (21:39)
[2020-01-27] MEDS: Piperacillin/Tazobactam 4.5 GM in Sodium Chloride 0.9% 100 ML IV SCH ×2 (00:28→08:16)
[2020-01-27] MEDS: Ibuprofen 600 MG Tab PO PRN (03:22)
[2020-01-27] MEDS: Docusate Sodium 100 MG Cap PO SCH (08:26)
--- NOTE | 2020-01-27 09:59 | PCM.SN.2 ---
- Free Text/Narrative Note: Postoperative day #1 patient is in good spirits. She is feeling good. No headache. Pain is controlled with ibuprofen. She has been up to the bathroom and had has been voiding well. She reports significant improvement since yesterday prior to surgery. Patient is afebrile. Vital signs stable. Intake and output is good. She is tolerating fluids well and is hungry. Appetite has been good. Lungs are clear with good breath sounds in all lung hernandez. Cardiovascular exam shows regular rhythm. Abdomen is flat, soft, nontender. Much less tender than upon evaluation prior to surgery. Bowel sounds are present. The vaginal cuff drain shows minimal drainage total of 28 cc over the last 3 shifts. Patient has tolerated this drain well. Laboratory testing shows white count of 12.57. Hemoglobin is essentially unchanged. Assessment: Postoperative day 1 status post evacuation of a vaginal cuff abscess. Patient doing very well. Plan: 1. Continue Zofran x1 more dose. 2. We will switch to Augmentin 875 mg p.o. twice daily and continue that for a total of 10 more days. 3. We will continue the drain until 01/29/2020 at which time if drainage is minimal we will remove in clinic. 4. Increase activity. Discontinue SCDs when active. Saline lock IV discontinue later today. 5. Consider discharge this afternoon.
[2020-01-27 15:46] VITALS: BP 119/84; PULSE 84
--- NOTE | 2020-01-27 16:45 | PCM.DCSUM1 ---
Discharge Summary - Hospital Course Free Text/Narrative:: Sivan is a 39-year-old multigravida white female who was admitted on 01/25/2020 with abdominal pain and suspected vaginal cuff abscess. She is status post total vaginal hysterectomy with bilateral salpingectomy done on 01/12/2020. Patient had been having pain for the last week or 2 and this increased to severe discomfort which time laboratory testing showed white count of 13,000+ and CT of the abdomen pelvis showed what appeared to be a vaginal cuff abscess/fluid collection just above the vaginal cuff. Decision was made to proceed with exam under anesthesia with possible drainage of this cuff abscess possible laparoscopy. This was done on 01/26/2020. Since that time patient has had virtually no pain. Her vital signs been stable throughout the postoperative course. Her white blood count has decreased. The patient has a drain that has been placed in the vaginal cuff abscess area. This drain has had minimal drainage of less than 10 cc per shift. She has been on Zosyn IV since admission with excellent response. She is ready for discharge. Diagnosis: Stroke: No - Discharge Data Discharge Date: 01/27/20 Discharge Disposition: Home, Self-Care 01 Condition: Good - Referral to Home Health Primary Care Physician: Nathanael Mas MD - Patient Summary/Data Operative Procedure(s) Performed: Exam under anesthesia, incision and drainage of vaginal cuff abscess and placement of a drain. - Patient Instructions Diet: Regular Diet as Tolerated Activity: As Tolerated (Course of tampons until seen back) Driving: Do Not Drive Showering/Bathing: May Shower Notify Provider of: Fever, Increased Pain, Swelling and Redness, Nausea and/or Vomiting - Discharge Plan Prescriptions/Med Rec: Amoxicillin/Potassium Clav [Augmentin 875-125 Tablet] 1 each PO Q12HR #20 tablet Home Medications: Home Meds Albuterol [Ventolin HFA] 1 - 2 inh INH Q4H PRN 10/03/17 [History] DULoxetine [Cymbalta] 60 mg PO DAILY 08/02/18 [History] Gabapentin [Neurontin] 600 mg PO TID 12/31/19 [History] Cyclobenzaprine [Flexeril] 5 - 10 mg PO TID PRN 01/11/20 [History] Fexofenadine/Pseudoephedrine [Kathe-D 24 Hour Tablet] 1 tab PO DAILY PRN 01/11/20 [History] Glutamic Acid [l-Glutamic Acid] 1 dose PO DAILY PRN 01/11/20 [History] Phentermine HCl 37.5 mg PO DAILY 01/11/20 [History] Pseudoephedrine HCl [Sudafed] 30 mg PO ASDIRECTED PRN 01/11/20 [History] SUMAtriptan succinate [Imitrex] 100 mg PO ASDIRECTED PRN 01/11/20 [History] Ibuprofen [Motrin] 600 mg PO Q4H PRN tablet 01/12/20 [Rx] Amoxicillin/Potassium Clav [Augmentin 875-125 Tablet] 1 each PO Q12HR #20 tablet 01/27/20 [Rx] Referrals: Nathanael Mas MD [Primary Care Provider] - (Return to clinicDr. Mas2 days.) - Discharge Summary/Plan Comment DC Time >30 min.: No Discharge Summary/Plan Comment: Discharge instructions: 1. Discharge home 2. Diet, activity and follow-up discussed with patient. 3. Precautions given concern increased pain, bleeding, temperature, signs/symptoms of DVT/PE. 4. Medications per home medication was printed, discussed with and given to the patient. 5. Return to clinic-Dr. Mas[facility] in 2 days. Diagnosis: Vaginal cuff abscessstatus post drainage with placement of a drain. Condition: Good - Patient Data Vitals - Most Recent: Last Vital Signs Temp 37.1 C 01/27/20 15:42 Pulse 84 01/27/20 15:42 Resp 14 01/27/20 15:42 BP 119/84 01/27/20 15:42 Pulse Ox 97 01/27/20 15:42 Weight - Most Recent: 87.09 kg I&O - Last 24 hours: Intake & Output 01/27/20 01/27/20 01/27/20 06:59 14:59 22:59 Intake Total 1100 180 Output Total 1 3 Balance 1099 177 Lab Results - Last 24 hrs: Laboratory Results - last 24 hr 01/27/20 Range/Units 04:15 WBC 12.56 H (3.98-10.04) K/mm3 RBC 3.45 L (3.98-5.22) M/mm3 Hgb 10.3 L (11.2-15.7) gm/dl Hct 31.9 L (34.1-44.9) % MCV 92.5 (79.4-94.8) fl MCH 29.9 (25.6-32.2) pg MCHC 32.3 (32.2-35.5) g/dl RDW Std Deviation 40.9 (36.4-46.3) fL Plt Count 399 H (182-369) K/mm3 MPV 9.5 (9.4-12.3) fl Neut % (Auto) 74.7 H (34.0-71.1) % Lymph % (Auto) 17.4 L (19.3-51.7) % [place] % (Auto) 7.0 (4.7-12.5) % Eos % (Auto) 0.7 (0.7-5.8) Baso % (Auto) 0.0 L (0.1-1.2) % Neut # (Auto) 9.38 H (1.56-6.13) K/mm3 Lymph # (Auto) 2.19 (1.18-3.74) K/mm3 [place] # (Auto) 0.88 H (0.24-0.36) K/mm3 Eos # (Auto) 0.09 (0.04-0.36) K/mm3 Baso # (Auto) 0.00 L (0.01-0.08) K/mm3 SPENCER Results - Last 24 hrs: Microbiology 01/26/20 12:06 Gram Stain - Final Other Anaerobic Culture - Preliminary NO GROWTH AFTER 1 DAY Med Orders - Current: Current Medications Docusate Sodium (Colace) 100 mg PO BID COUNTS INCLUDE 234 BEDS AT THE [facility] Last Admin: 01/27/20 08:26 Dose: 100 mg Documented by: Hydromorphone HCl (Dilaudid) 0.4 mg IVPUSH Q3H PRN PRN Reason: Pain (severe 7-10) Ibuprofen (Motrin) 600 mg PO Q6H PRN PRN Reason: Pain (mild 1-3) Last Admin: 01/27/20 03:22 Dose: 600 mg Documented by: Ondansetron HCl (Zofran) 4 mg IVPUSH Q4H PRN PRN Reason: Nausea/Vomiting Discontinued Medications Acetaminophen (Tylenol) 650 mg PO NOW ONE Stop: 01/25/20 23:48 Last Admin: 01/26/20 00:26 Dose: 650 mg Documented by: Bupivacaine HCl (Marcaine 0.5%) Confirm Administered Dose 0 ml .ROUTE .STK-MED ONE Stop: 01/26/20 10:53 Dexamethasone (Dexamethasone) Confirm Administered Dose 20 mg .ROUTE .STK-MED ONE Stop: 01/26/20 12:11 Fentanyl (Sublimaze) Confirm Administered Dose 100 mcg .ROUTE .STK-MED ONE Stop: 01/26/20 10:58 Fentanyl (Sublimaze) 50 mcg IVPUSH Q5M PRN PRN Reason: Pain Stop: 01/26/20 15:00 Last Admin: 01/26/20 12:57 Dose: 50 mcg Documented by: Fentanyl (Sublimaze) Confirm Administered Dose 100 mcg .ROUTE .STK-MED ONE Stop: 01/26/20 12:56 Last Admin: 01/26/20 13:02 Dose: Not Given Documented by: Glycopyrrolate (Robinul) Confirm Administered Dose 0.4 mg .ROUTE .STK-MED ONE Stop: 01/26/20 12:14 Glycopyrrolate (Robinul) Confirm Administered Dose 0.4 mg .ROUTE .STK-MED ONE Stop: 01/26/20 12:15 Hydromorphone HCl (Dilaudid) 0.5 mg IVPUSH Q2H PRN PRN Reason: Pain Last Admin: 01/25/20 22:30 Dose: 0.5 mg Documented by: Hydromorphone HCl (Dilaudid) 1 mg IVPUSH Q2H PRN PRN Reason: Abdominal Pain Last Admin: 01/26/20 11:29 Dose: 1 mg Documented by: Hydromorphone HCl (Dilaudid) 0.5 mg IVPUSH Q10M PRN PRN Reason: Pain (severe 7-10) Stop: 01/26/20 15:00 Last Admin: 01/26/20 13:03 Dose: 0.5 mg Documented by: Lactated Ringer's (Ringers, Lactated) 1,000 mls @ 125 mls/hr IV ASDIRECTED COUNTS INCLUDE 234 BEDS AT THE [facility] Last Admin: 01/26/20 01:15 Dose: 125 mls/hr Documented by: Piperacillin Sod/Tazobactam (Sod 4.5 gm/ Sodium Chloride) 100 mls @ 25 mls/hr IV Q8H COUNTS INCLUDE 234 BEDS AT THE [facility] Last Admin: 01/26/20 09:03 Dose: 25 mls/hr Documented by: Piperacillin Sod/Tazobactam (Sod 4.5 gm/ Sodium Chloride) 100 mls @ 200 mls/hr IV ONETIME ONE Stop: 01/25/20 16:29 Last Admin: 01/25/20 16:15 Dose: 200 mls/hr Documented by: Lidocaine HCl (Xylocaine-Mpf 1%) Confirm Administered Dose 4 mls @ as directed .ROUTE .STK-MED ONE Stop: 01/26/20 10:57 Lactated Ringer's (Ringers, Lactated) 1,000 mls @ 125 mls/hr IV ASDIRECTED COUNTS INCLUDE 234 BEDS AT THE [facility] Last Admin: 01/26/20 16:20 Dose: 125 mls/hr Documented by: Piperacillin Sod/Tazobactam (Sod 4.5 gm/ Sodium Chloride) 100 mls @ 25 mls/hr IV Q8H COUNTS INCLUDE 234 BEDS AT THE [facility] Last Admin: 01/27/20 08:16 Dose: 25 mls/hr Documented by: Ketorolac Tromethamine (Toradol) Confirm Administered Dose 30 mg .ROUTE .STK-MED ONE Stop: 01/26/20 12:19 Lidocaine/Epinephrine (Xylocaine 1% With Epinephrine 1:100,000) Confirm Administered Dose 0 ml .ROUTE .STK-MED ONE Stop: 01/26/20 10:53 Metoclopramide HCl (Reglan) 10 mg IVPUSH ONETIME ONE Stop: 01/26/20 06:32 Last Admin: 01/26/20 06:40 Dose: 10 mg Documented by: Neostigmine Methylsulfate (Neostigmine Methylsulfate) Confirm Administered Dose 5 mg .ROUTE .STK-MED ONE Stop: 01/26/20 12:15 Ondansetron HCl (Zofran) 4 mg IVPUSH Q4H PRN PRN Reason: Nausea Last Admin: 01/26/20 04:16 Dose: 4 mg Documented by: Ondansetron HCl (Zofran) Confirm Administered Dose 4 mg .ROUTE .STK-MED ONE Stop: 01/26/20 12:11 Ondansetron HCl (Zofran) 4 mg IVPUSH ONETIME PRN PRN Reason: Nausea/Vomiting Stop: 01/26/20 15:00 Promethazine HCl (Phenergan) 25 mg IM ONETIME ONE Stop: 01/26/20 08:29 Last Admin: 01/26/20 08:49 Dose: 25 mg Documented by: Propofol (Diprivan 20 Ml) Confirm Administered Dose 200 mg .ROUTE .STK-MED ONE Stop: 01/26/20 10:58 Rocuronium [place] (Zemuron) Confirm Administered Dose 50 mg .ROUTE .STK-MED ONE Stop: 01/26/20 10:57 Scopolamine (Transderm-Scop) 1.5 mg TOP ONETIME ONE Stop: 01/26/20 09:07 Last Admin: 01/26/20 09:22 Dose: 1.5 mg Documented by: Sodium Chloride (Normal Saline) Confirm Administered Dose 0 ml .ROUTE .STK-MED ONE Stop: 01/26/20 10:53 Sumatriptan Succinate (Imitrex) 100 mg PO ONETIME ONE Stop: 01/26/20 00:15 Last Admin: 01/26/20 00:28 Dose: 100 mg Documented by: Sumatriptan Succinate (Imitrex) 100 mg PO ONETIME ONE Stop: 01/26/20 01:08 Last Admin: 01/26/20 01:25 Dose: 100 mg Documented by:
== END 2020-01-27 17:00 | disposition home or self-care (01) ==
LOC: JD.OB 15:21
PROVIDERS: ADMIT Obstetrics & Gynecology; ATTEND Obstetrics & Gynecology
DX: N76.0 Acute vaginitis (principal); F41.8 Other specified anxiety disorders; G43.909 Migraine, unspecified, not intractable, without status migrainosus; Z98.890 Other specified postprocedural states; Z79.899 Other long term (current) drug therapy; Z91.048 Other nonmedicinal substance allergy status; Z87.891 Personal history of nicotine dependence
CPT/HCPCS: 36415; 85025; 87075; 87076; 87077; 87186; 87205; 96361; 96365; 96366; 96372; 96375; 96376; A9270-GY; G0378; J1100; J1170; J1885; J2001; J2405; J2543; J2550; J2704; J2710; J2765; J3010; J3490; J7050; J7120; U0002

== ENCOUNTER 2020-06-23 17:56 | Emergency (ER) | payer BC ==
[2020-06-23] MEDS ORDERED: HYDROmorphone 0.5 MG/0.5 ML Syringe IVPUSH ONE (18:28)
[2020-06-23] MEDS ORDERED: Ondansetron 4 MG/2 ML SDV IVPUSH ONE (18:28)
[2020-06-23] MEDS ORDERED: Ketorolac 30 MG/ML SDV IVPUSH ONE (18:28)
[2020-06-23] MEDS ORDERED: Sodium Chloride 0.9% 10 ML Syringe FLUSH PRN (18:28)
[2020-06-23] MEDS ORDERED: Sodium Chloride 0.9% 1,000 ML IV STA (18:28)
--- NOTE | 2020-06-23 18:58 | EDM.PDOC ---
ED HPI GENERAL MEDICAL PROBLEM - General Chief Complaint: Genitourinary Problem Stated Complaint: BACK AND LOWER ABD PAIN HX OF KIDNEY STONES Time Seen by Provider: 06/23/20 18:08 Source of Information: Reports: Patient, RN Notes Reviewed History Limitations: Reports: No Limitations - History of Present Illness INITIAL COMMENTS - FREE TEXT/NARRATIVE: Patient is a 40-year-old female presenting to the emergency department with complaints of right-sided flank pain rating down into her right groin. She states that the symptoms have been there minimally for a few days, however worsened in intensity today. She complains of nausea but denies vomiting. She is had no fever or chills. She does have a history of kidney stones and states that this feels similar to her previous episodes. She does have a urologist, Dr. Starkey. States in the past she has had to have lithotripsy completed for kidney stones. Right Lower Abdomen Pain Score (Numeric/FACES): 6 - Related Data Allergies Allergy/AdvReac Type Severity Reaction Status Date / Time adhesive tape Allergy Rash Verified 06/23/20 18:10 Home Meds: Home Meds Albuterol [Ventolin HFA] 1 - 2 inh INH Q4H PRN 10/03/17 [History] DULoxetine [Cymbalta] 60 mg PO DAILY 08/02/18 [History] Gabapentin [Neurontin] 600 mg PO TID 12/31/19 [History] Cyclobenzaprine [Flexeril] 5 - 10 mg PO TID PRN 01/11/20 [History] Fexofenadine/Pseudoephedrine [Kathe-D 24 Hour Tablet] 1 tab PO DAILY PRN 01/11/20 [History] Phentermine HCl 37.5 mg PO DAILY 01/11/20 [History] SUMAtriptan succinate [Imitrex] 100 mg PO ASDIRECTED PRN 01/11/20 [History] Ibuprofen [Motrin] 600 mg PO Q4H PRN tablet 01/12/20 [Rx] Acetaminophen/oxyCODONE [Percocet 325-5 MG] 1 each PO Q4H PRN #15 tab 06/23/20 [Rx] Naltrexone 50 mg PO DAILY 06/23/20 [History] Past Medical History HEENT History: Reports: Allergic Rhinitis, Other (See Below) Other HEENT History: States has sinus issues with previous surgery in 2007 Cardiovascular History: Reports: None Respiratory History: Reports: Asthma Other Respiratory History: exercise-induced asthma. Gastrointestinal History: Reports: None Genitourinary History: Reports: Renal Calculus Other Genitourinary History: ovarian cysts CAKE STRIPPER History: Reports: Dysfunctional Uterine Bleeding, , Other (See Below) Other CAKE STRIPPER History: D&C 2014. Ovarian Cyst removal 2013. Csection 2008. breast augmentation. yeast infection. TVH Musculoskeletal History: Reports: Back Pain, Chronic, Fibromyalgia Neurological History: Reports: Migraines Psychiatric History: Reports: Depression, Other (See Below) Other Psychiatric History: history of post depression Hematologic History: Reports: Anemia, Iron Deficiency Other Hematologic History: during . Immunologic History: Reports: None Oncologic (Cancer) History: Reports: None Dermatologic History: Reports: Other (See Below) Other Dermatologic History: nevus - Infectious Disease History Infectious Disease History: Reports: Chicken Pox - Past Surgical History HEENT Surgical History: Reports: Naso-Sinus Surgery, Oral Surgery Other HEENT Surgeries/Procedures: Sinus Surgery 2007 GI Surgical History: Reports: Appendectomy, Cholecystectomy Other GI Surgeries/Procedures: 1998 Female Surgical History: Reports: Breast Implant, Section, D&C, Hysterectomy, Ureteral Stent, Other (See Below) Neurological Surgical History: Reports: None Musculoskeletal Surgical History: Reports: Arthroscopic Knee Other Musculoskeletal Surgeries/Procedures:: right knee miniscus surgery 2002 Dermatological Surgical History: Reports: None Social & Family History - Family History Family Medical History: No Pertinent Family History Musculoskeletal: Reports: RA Other Musculoskeletal Family History: Mother Oncologic: Reports: Prostate Other Oncologic Family History: Maternal Grandpa - Tobacco Use Tobacco Use Status *Q: Never Tobacco User Second Hand Smoke Exposure: No - Caffeine Use Caffeine Use: Reports: None Other Caffeine Use: rarely - Recreational Drug Use Recreational Drug Use: No - Living Situation & Occupation Living situation: Reports: , with Spouse, with Family (4 sons) 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 Denies: Abdominal Pain, Vomiting : Reports: Flank Pain. Denies: Dysuria, Hematuria Musculoskeletal: Reports: No Symptoms Skin: Reports: No Symptoms Neurological: Reports: No Symptoms Psychiatric: Reports: No Symptoms Hematologic/Lymphatic: Reports: No Symptoms Immunologic: Reports: No Symptoms ED EXAM, RENAL/ - Physical Exam Exam: See Below General Appearance: Alert, WD/WN, No Apparent Distress Respiratory/Chest: No Respiratory Distress, Lungs Clear, Normal Breath Sounds, No Accessory Muscle Use, Chest Non-Tender Cardiovascular: Normal Peripheral Pulses, Regular Rate, Rhythm, No Edema, No Gallop, No JVD, No Murmur, No Rub GI/Abdominal: Normal Bowel Sounds, Soft, Non-Tender, No Organomegaly, No Distention, No Abnormal Bruit, No Mass Back Exam: Normal Inspection, Full Range of Motion, CVA Tenderness (R). No: CVA Tenderness (L) Extremities: Normal Inspection, Normal Range of Motion, Non-Tender, Normal Capillary Refill, No Pedal Edema Neurological: Alert, Oriented, CN II-XII Intact, Normal Cognition, Normal Gait, Normal Reflexes, No Motor/Sensory Deficits Psychiatric: Normal Affect, Normal Mood Course - Vital Signs Last Recorded V/S: Last Vital Signs Temp 98.5 F 06/23/20 18:07 Pulse 87 06/23/20 18:07 Resp 16 06/23/20 18:07 BP 118/83 06/23/20 18:07 Pulse Ox 99 06/23/20 18:07 - Orders/Labs/Meds Orders: Active Orders 24 hr Category Date Time Status Peripheral IV Care [RC] . DIRECTED Care 06/23/20 18:29 Active Sodium Chloride 0.9% [Saline Flush] Med 06/23/20 18:28 Active 10 ml FLUSH ASDIRECTED PRN Peripheral IV Insertion Adult [OM.PC] Stat Oth 06/23/20 18:27 Ordered Labs: Laboratory Tests 06/23/20 06/23/20 06/23/20 Range/Units 18:35 18:35 18:35 WBC 9.25 (3.98-10.04) K/mm3 RBC 4.46 (3.98-5.22) M/mm3 Hgb 13.2 D (11.2-15.7) gm/dl Hct 39.5 (34.1-44.9) % MCV 88.6 D (79.4-94.8) fl MCH 29.6 (25.6-32.2) pg MCHC 33.4 (32.2-35.5) g/dl RDW Std Deviation 42.9 (36.4-46.3) fL Plt Count 263 D (182-369) K/mm3 MPV 9.4 (9.4-12.3) fl Neut % (Auto) 57.1 (34.0-71.1) % Lymph % (Auto) 28.0 (19.3-51.7) % [place] % (Auto) 8.3 (4.7-12.5) % Eos % (Auto) 6.5 H (0.7-5.8) Baso % (Auto) 0.0 L (0.1-1.2) % Neut # (Auto) 5.28 (1.56-6.13) K/mm3 Lymph # (Auto) 2.59 (1.18-3.74) K/mm3 [place] # (Auto) 0.77 H (0.24-0.36) K/mm3 Eos # (Auto) 0.60 H (0.04-0.36) K/mm3 Baso # (Auto) 0.00 L (0.01-0.08) K/mm3 Sodium 139 (136-145) mEq/L Potassium 3.7 (3.5-5.1) mEq/L Chloride 104 (98-107) mEq/L Carbon Dioxide 23 (21-32) mEq/L Anion Gap 15.7 H (5-15) BUN 16 (7-18) mg/dL Creatinine 0.9 (0.55-1.02) mg/dL Est Cr Clr Drug Dosing 82.14 mL/min Estimated GFR (MDRD) > 60 (>60) mL/min BUN/Creatinine Ratio 17.8 (14-18) Glucose 88 (74-106) mg/dL Calcium 9.0 (8.5-10.1) mg/dL Total Bilirubin 0.2 (0.2-1.0) mg/dL AST 11 L (15-37) U/L ALT 20 (14-59) U/L Alkaline Phosphatase 75 (46-116) U/L Total Protein 7.3 (6.4-8.2) g/dl Albumin 3.7 (3.4-5.0) g/dl Globulin 3.6 gm/dL Albumin/Globulin Ratio 1.0 (1-2) Urine Color Light yellow (Yellow) Urine Appearance Clear (Clear) Urine pH 7.0 (5.0-8.0) Ur Specific [place] 1.020 (1.005-1.030) Urine Protein Negative (Negative) Urine Glucose (UA) Negative (Negative) Urine Ketones Negative (Negative) Urine Occult Blood 3+ H (Negative) Urine Nitrite Negative (Negative) Urine Bilirubin Negative (Negative) Urine Urobilinogen 0.2 (0.2-1.0) Ur Leukocyte Esterase Trace H (Negative) Urine RBC 10-20 H (0-5) /hpf Urine WBC 0-5 (0-5) /hpf Ur Epithelial Cells 0-5 (0-5) /hpf Urine Bacteria Not seen (FEW) /hpf Urine Mucus Rare (FEW) /hpf - Re-Assessments/Exams Free Text/Narrative Re-Assessment/Exam: Patient is a 40-year-old female presenting to the emergency department with complaints of right-sided flank pain radiating down into her right groin. Symptoms have been present mildly for a few days but became quite intense today. She denies any associated fever or chills. She is felt nauseous with no vomiting. On exam, she does have significant right-sided CVA tenderness. His exam is otherwise unremarkable. I have ordered blood work, urinalysis, and a CT scan of the abdomen pelvis without contrast. 06/23/20 19:30 Hematology was significant for anion gap minimally elevated at 15.7. Urinalysis shows 3+ occult blood, trace leukocyte esterase, 10-20 RBCs. WBCs and bacteria are negative, therefore there is no indication that there is infection. T scan impression as follows: 1. Hydronephrotic right kidney and dilated right ureter caused by 6.6 mm obstructing stone located distally within the right ureter close to the UVJ. 2. Multiple small nonobstructing calculi are seen within both kidneys. 3. Cyst within the right ovary measuring 3.2 cm which is felt to be incidental. Patient is feeling much better with the medications given. I will send a prescription for Percocet for pain. She states that she has enough Zofran at home. CT images have been pushed to [facility]. Recommend that she strain her urine. If she does not pass the stone within the next week, recommend that she contact her urologist to set up a follow-up visit. Discussed return precautions. Discharge instructions as documented. Departure - Departure Time of Disposition: 19:32 Disposition: Home, Self-Care 01 Condition: Good Clinical Impression: Kidney stone - Discharge Information *PRESCRIPTION DRUG MONITORING PROGRAM REVIEWED*: Yes *COPY OF PRESCRIPTION DRUG MONITORING REPORT IN PATIENT HERNANDO: No Prescriptions: Acetaminophen/oxyCODONE [Percocet 325-5 MG] 1 each PO Q4H PRN #15 tab PRN Reason: Pain Instructions: Kidney Stones, [id number] Referrals: Omkar Harley MD [Primary Care Provider] - Finn Starkey MD [Ordering Only Provider] - Forms: ED Department Discharge Additional Instructions: You were seen in the emergency department today for right-sided flank pain radiating into your groin. Work-up included blood work, urinalysis, and CT scan your abdomen pelvis. Results of your work-up found that you have a 6.6 mm kidney stone in your right ureter near the bladder. While in the ER, you received IV fluids, pain medication, nausea medication. You have been sent home with a urine strainer. Recommend that you strain your urine each time that you go. Use routine Tylenol and ibuprofen as needed for discomfort. For pain not relieved by these measures, a prescription for Percocet has been sent. Uses medication only as prescribed and do not work or drive for 12 hours after taking the medication as it can be sedating. You may use the Zofran that you have at home as needed for nausea. You do not pass the stone in about a week's time, recommend contacting your urologist, Dr. Starkey, for follow-up. If you should develop any signs of infection including fever, chills, or any other concerning symptoms, please not hesitate to return to the emergency department for reevaluation. Sepsis Event Note (ED) - Evaluation Sepsis Screening Result: No Definite Risk - Focused Exam Vital Signs: Vital Signs Temp Pulse Resp BP Pulse Ox 06/23/20 18:07 98.5 F 87 16 118/83 99 - My Orders Last 24 Hours: My Active Orders 06/23/20 18:27 Peripheral IV Insertion Adult [OM.PC] Stat 06/23/20 18:28 Sodium Chloride 0.9% [Saline Flush] 10 ml FLUSH ASDIRECTED PRN 06/23/20 18:29 Peripheral IV Care [RC] . DIRECTED - Assessment/Plan Last 24 Hours: My Active Orders 06/23/20 18:27 Peripheral IV Insertion Adult [OM.PC] Stat 06/23/20 18:28 Sodium Chloride 0.9% [Saline Flush] 10 ml FLUSH ASDIRECTED PRN 06/23/20 18:29 Peripheral IV Care [RC] . DIRECTED
--- NOTE | 2020-06-23 19:18 | CT ---
CT abdomen and pelvis Technique: Multiple axial sections were obtained from above the dome of the diaphragm inferiorly through the pubic symphysis. Intravenous and oral contrast was not utilized. Study has been performed as a ureteral stone protocol. Comparison: Previous CT study of 08/02/18. Findings: Multiple small calcifications are seen within both kidneys compatible with nonobstructing renal calculi. There is hydronephrosis of the right kidney as well as hydroureter. Findings on the right side are due to an obstructing stone located within the distal right ureter close to the UVJ measuring 6.6 mm. No other ureteral calculi are seen. Visualized lung bases show nothing acute. Noncontrast appearance of the liver shows no focal parenchymal abnormality. Surgical clips are noted from prior cholecystectomy. Spleen appears within normal limits. Adrenal glands show no nodule. Pancreas shows no discrete abnormality. Abdominal aorta shows no aneurysm. No retroperitoneal adenopathy or mesenteric abnormalities are seen. No pelvic mass or adenopathy is seen. Cyst is noted within the right ovary measuring 3.2 cm. Appendix is not definitely visualized. Bone window settings were reviewed which appear within normal limits for the patient's age. Impression: 1. Hydronephrotic right kidney and dilated right ureter caused by a 6.6 mm obstructing stone located distally within the right ureter close to the UVJ. 2. Multiple small nonobstructing calculi are seen within both kidneys. 3. Cyst within the right ovary measuring 3.2 cm which is felt to be incidental. Diagnostic code #3
[2020-06-23 20:12] VITALS: BP 126/89; PULSE 84
== END 2020-06-23 19:30 | disposition home or self-care (01) ==
LOC: JD.ED 17:56
DX: N13.2 Hydronephrosis with renal and ureteral calculous obstruction (principal); J45.909 Unspecified asthma, uncomplicated; Z79.899 Other long term (current) drug therapy; Z91.048 Other nonmedicinal substance allergy status
CPT/HCPCS: 36415; 74176; 80053; 81001; 85025; 96374; 99284; J1170; J1885; J2405; J7030; 96375